=== PATIENT | male | born 1945 | race Caucasian/White ===

== ENCOUNTER 2017-04-25 07:58 | Day surgery (SDC) | payer MEDICARE, OTHER ==
[2017-04-25] MEDS ORDERED: METO50TA11 PO (08:39)
[2017-04-25] MEDS ORDERED: CHLO25TA2 PO (08:39)
[2017-04-25] MEDS ORDERED: MULTTAB67 PO (08:39)
[2017-04-25] MEDS ORDERED: IMUR50TA PO (08:39)
[2017-04-25] MEDS ORDERED: ATOR10TA15 PO (08:39)
[2017-04-25] MEDS ORDERED: ZETI10TA5 PO (08:39)
[2017-04-25] MEDS ORDERED: HYDR-3799 PO (08:39)
[2017-04-25] MEDS ORDERED: FERR325C PO (08:39)
[2017-04-25] MEDS ORDERED: ISOS20TA PO (08:39)
[2017-04-25] MEDS ORDERED: CLON0.3D T-DERMAL (08:39)
[2017-04-25] MEDS ORDERED: AMLO10TA2 PO (08:39)
[2017-04-25] MEDS ORDERED: SITA50 PO (08:39)
[2017-04-25] MEDS ORDERED: METOPROLOL TARTRATE 25 MG TAB PO PRN (09:00)
[2017-04-25] MEDS ORDERED: LACTATED RINGER'S 1000 ML IV PRN (09:00)
[2017-04-25] MEDS ORDERED: CHLORHEXIDINE GLUCONATE 2 % 1 PACK (2 CLOTHS) TOPICAL PRN (09:00)
[2017-04-25] MEDS ORDERED: SODIUM CHLORID 0.9% 500 ML IV PRN (09:00)
[2017-04-25] MEDS ORDERED: POVIDONE IODINE 5% (ANTISEPSIS KIT) 4 APPLICATIONS EACH NARE PRN (09:00)
[2017-04-25] MEDS ORDERED: INSULIN HUMAN REGULAR 1,000 UNITS/10 ML VIAL SQ PRN (09:00)
[2017-04-25] MEDS ORDERED: PROPOFOL 200 MG/20 ML AMP ONE ×2 (10:00→10:35)
[2017-04-25] MEDS ORDERED: ePHEDrine/NS 25 MG/5 ML SYR ONE (10:00)
[2017-04-25] MEDS ORDERED: SUCCINYLCHOLINE CHLORIDE 100 MG/5 ML SYRINGE ONE (10:00)
--- NOTE | 2017-04-25 13:17 | EKG ---
Date Performed: 04/25/2017 Time Performed: 08:41:12 PTAGE: 71 years EKG: Sinus bradycardia. Nonspecific intraventricular conduction delay Septal and high lateral ST -T changes may be due to myocardial ischemia Abnormal ECG NO PREVIOUS TRACING DOCTOR: Lucas Scott Interpretating Date/Time 04/25/2017 13:15:01
--- NOTE | 2017-04-29 15:02 | CF ---
cc: LIAM BOBO M.D. DATE OF PROCEDURE: 04/25/2017 PROCEDURE PERFORMED Transesophageal echocardiography with two-dimensional Echo, Doppler and color flow mapping. PREOPERATIVE DIAGNOSIS Aortic insufficiency and left ventricular dysfunction. POSTOPERATIVE DIAGNOSIS Aortic insufficiency and left ventricular dysfunction. ANESTHESIA Propofol sedation with anesthesiology assistance. BLOOD LOSS None. COMPLICATIONS None. PROCEDURE TECHNIQUE The patient was brought to the outpatient diagnostic unit and after informed consent was sedated with propofol. Transesophageal echocardiogram probe was passed without difficulty into the esophagus. Imaging was performed. Images including two-dimensional, Doppler and color flow mapping were performed of the heart and aorta. The probe was advanced and retroflexed in the stomach for additional imaging and following acquisition of all the imaging, the probe was removed without difficulty or complications and the patient was recovered. He will be discharged to home today when ambulatory and stable. FINDINGS 1. Left ventricular wall thickness is normal. The left ventricle is mildly dilated with mild global systolic dysfunction. The left ventricular ejection fraction is estimated at 40-45%. No regional wall motion abnormalities are identified. The right ventricle is mildly dilated with normal systolic function. There is mild biatrial enlargement. The intraatrial septum is intact without evidence of shunting. The left atrial appendage is free from any filling defects or thrombus. 2. The aortic valve is a sclerotic trileaflet valve. Adequate leaflet mobility is seen and there is no significant stenosis. There is aortic regurgitation detected. This jet is very eccentric and posteriorly directed traveling along the inferior wall distally to the inferior apex. Evaluating this regurgitant jet was somewhat difficult due to the eccentricity but findings of a pressure halftime of between 259 and 322 milliseconds. A vena contracta of approximately 1.2 cm. These findings as well as the color Doppler mapping indicate at least moderate to severe regurgitation. The aortic root and proximal portion of the ascending aorta are normal. 3. Mitral valve is structurally normal. There is trace mitral regurgitation detected by Doppler. 4. Tricuspid and pulmonic valves are structurally normal. There is trace tricuspid regurgitation detected by Doppler. Pulmonic flows are normal. 5. The pericardium is normal. There are no intracardiac masses or thrombi identified. 6. Descending thoracic aorta is normal. SUMMARY 1. Mildly dilated left and right ventricles. 2. Mild global left ventricular systolic dysfunction. 3. Aortic sclerosis with moderate to severe aortic regurgitation. COMMENTS/RECOMMENDATIONS The patient's aortic regurgitation appears to be significant at this point and his left ventricular function has begun to deteriorated over the last couple of years, and I think that replacement of his aortic valve should be done in the near future. I have discussed this with the patient and his and have scheduled him for a followup coronary angiogram to rule out any significant obstructive coronary disease, and then he will undergo cardiothoracic surgical evaluation for possible aortic valve replacement. MD EMRE Varma/AMIE /11:10 AM /2:39 PM
== END 2017-04-25 11:57 | disposition home or self-care (01) ==
LOC: HDIC 07:58 → HDOC 07:58
PROVIDERS: ATTEND Internal Medicine Interventional Cardiology
DX: I35.0 Nonrheumatic aortic (valve) stenosis (principal); I34.0 Nonrheumatic mitral (valve) insufficiency; I50.1 Left ventricular failure, unspecified
CPT/HCPCS: 93005; 93312; 93320; 93325; J0330

== ENCOUNTER 2017-05-09 05:56 | Day surgery (SDC) | payer MEDICARE, OTHER ==
[~2017-05-09] VITALS: Ht 177.8 cm; Wt 78.4 kg
[~2017-05-09 05:56] MED LIST: AMLO10TA2 PO; ATOR10TA15 PO; CHLO25TA2 PO; CLON0.3D T-DERMAL; FERR325C PO; HYDR-3799 PO; IMUR50TA PO; ISOS20TA PO; METO50TA11 PO; MULTTAB67 PO; SITA50 PO; ZETI10TA5 PO
[2017-05-09] MEDS ORDERED: IOHEXOL 350 MG/ML 100 ML BTL (for Cath Lab) OTHER ONE (05:57)
[2017-05-09] MEDS ORDERED: SODIUM CHLOR 0.9% 1000 ML INJ 1,000 ML IV SCH ×2 (06:43→11:00)
[2017-05-09] MEDS ORDERED: diphenhydrAMINE HCL 50 MG CAP PO PRN (06:45)
[2017-05-09] MEDS ORDERED: MIDAZOLAM HCL 2 MG/2 ML VIAL IV PUSH SCH (06:45)
[2017-05-09] MEDS ORDERED: NS 1000P @30 MLS/HR (KVO) IV SCH (07:30)
[2017-05-09 08:04] VITALS: BP 153/71; RESP 18; TEMP 98.2
[2017-05-09] MEDS ORDERED: HEPARIN-NS/PF INJ 1,000 ML ONE (08:46)
[2017-05-09] MEDS ORDERED: SODIUM CHLORID 0.9% 500 ML INJ 500 ML ONE (08:47)
[2017-05-09] MEDS ORDERED: MIDAZOLAM HCL 2 MG/2 ML VIAL ONE (08:49)
[2017-05-09] MEDS ORDERED: VERAPAMIL HCL 5 MG/2 ML VIAL ONE (08:54)
[2017-05-09] MEDS ORDERED: HEPARIN SODIUM - IV 10,000 UNITS/10 ML VIAL ONE (08:54)
[2017-05-09] MEDS ORDERED: NITROGLYCERIN INJ 5 ML ONE (08:54)
[2017-05-09] MEDS ORDERED: RESP: ACETYLCYSTEINE 10% 30 ML NEB OTHER SCH (09:00)
--- NOTE | 2017-05-09 09:20 | CATHPROC ---
[employer] HIS Report Study Information Study Number Admission Scheduled Start Study Start [id number] May 09 2017 5:56AM 05/09/2017 May 09 2017 8:32AM [facility]thel Service Cardiac Catheterization Admit Source Facility Department Other [facility] - Biometrics Consultant Physician and Clinical Staff Initial MD Marr, Aaron General Practice Errol Haq,JULIA Recorder Millie Granados,FISHER EEL TECH2 Scrub Blas, Justine,RT(R) Procedures Performed Procedure Location (Site) Vessel Name Coronary Angiograms LCA Left Coronary Coronary Angiograms RCA Right Coronary Wire insertion Radial (right) Radial Art. Equipment Time Indirect Sales Representative Description Size Mfg Part Number Used/Scraped TRANSDUCER, TRUWAVE [id number] 08:49 PRYOR JACKMAN * Used W/STOCKCOCK *[id number] 08:49 MALLINCKRODT SYRINGE, ANGIOMAT 150ML 150ML *[id number] Used 2SUB [id number] 08:49 [employer] INDUSTRIES PACK, CCL CUSTOM * Used *[id number] 08:49 [place] SUPPORT, ARTERIAL ADULT 75589 *[id number] Used [id number] 08:49 [employer] PACER PEN, SKIN DUAL W/ RULER * Used *[id number] BAND, RADIAL COMPRESSION TR [id number] 09:09 [employer] MEDICAL 29CM Used LARGE 29 *[id number] 08:49 [employer] MEDICAL WIRE, EXCHANGE 260CM 3MMJ 260CM Used *[id number] 08:49 NAMIC MANIFOLD, 4 PORT * Used *[id number] 08:49 NYCOMED OMNIPAQUE, 350 MG, 150ML 150ML [id number] Used [id number] 08:49 [employer] MEDICAL BLANKET,WARM AIR CCL * Used *[id number] CATHETER, FR5 OPTITORQUE [id number] 08:50 [employer] MEDICAL FR 5 Used RADIAL TIG 4.0 *[id number] SHEATH, FR6 TRANSRADIAL RM*[id number] 08:49 [employer] MEDICAL FR 6 Used SLENDER 10CM *[id number] History: Allergies Allergy Reaction No Known Allergies CHYNA Inhibitors ARB-Angiotensin Receptor Antagonist History: Risk Factors Family History of Hypertension Dyslipidemia Previous [place] Previous Heart Failure Premature CAD Yes Yes Yes No No Prior Valve Prior PCI Prior CABG Surgery No No No Cerebrovascular Peripheral Artery Chronic Lung On Dialysis Diabetes Diabetes Therapy Disease Disease Disease No No No Yes Yes Oral Labs Hgb (g/dl) Hct (%) RBC (MIL/MM3) WBC (l/cumm) Platelets (thousands) 11.60-17.00 35.00-51.00 4.00-5.90 4.00-11.00 150.00-450.00 10.4 30.4 3 3.8 198 Creatinine (mg/dl) 0.50-1.30 1.9 Na (meq/l) K (meq/l) Cl (meq/l) CO2 (mmol/L) Ca (mg/dl) 136.00-145.00 3.50-5.10 98.00-107.00 21.00-32.00 8.50-10.10 139 4.9 106 25 8.9 Medication Medication Total Dose (Bolus/Oral) Medication Total Dosage/Unit 1% XYLOCAINE 10 mL FENTANYL 25 mcg RADIAL COCKTAIL 5 mL (Bolus) VERSED 2 mg Medications (Bolus/Oral) Medication Time Given Dosage/Unit Administered By Reason VERSED 05/09/2017 8:56:34 AM 2 mg Errol Haq 2 mg VERSED given in lab by Errol Haq RN in Left Antecubital via Peripheral IV. Ordered by Aaron Romero. FENTANYL 05/09/2017 8:56:50 AM 25 mcg Errol Haq 25 mcg FENTANYL given in lab by Errol Haq RN in Left Antecubital via Peripheral IV. Ordered by Aaron Marr. 1% XYLOCAINE 05/09/2017 8:57:13 AM 10 mL Aaron Marr 10 mL 1% XYLOCAINE given in lab by Aaron Marr in Right Radial via Subcutaneous. Ordered by Aaron Romero. Ntg 200mcg Verapamil 2.5mg Heparin RADIAL COCKTAIL 05/09/2017 9:00:35 AM 5 mL (Bolus) Aaron Marr 3000U 5 mL (Bolus) RADIAL COCKTAIL given in lab by Aaron Marr via Radial. Using [Solution Name]. Orde red by Aaron Marr. Reason: Ntg 200mcg Verapamil 2.5mg Heparin 3000U. Medication (Drip) Medication Time Given Dosage/Unit Concentration/Unit Diluent (ml) Solutio n IV Solutions 05/09/2017 8:41:08 AM 0 mL (IV) 500 NaCl .9 IV Solutions given in lab by Aaron Marr in Left Antecubital via Peripheral IV. Pump/Drip Flow = 150 ml/hr using NaCl .9. Ordered by Aaron Marr. IV Solutions 05/09/2017 8:41:43 AM 0 mL (IV) 500 NaCl .9 IV Solutions given in lab by Errol Haq RN in Left Antecubital via Peripheral IV. Pump/Drip Flow = 20 ml/hr using NaCl .9. Ordered by Aaron Marr. Initial Case Assessment Cardiovascular HR NIBP 65 185/85 Edema Present Skin color Skin None Normal Warm Dry Circulatory - Right Pulses Dorsalis Pedis Femoral Radial 2 2 2 Scale (0,1,2,3,4,d) Circulatory - Left Pulses Dorsalis Pedis Femoral Radial 2 2 Scale (0,1,2,3,4,d) Neurological State Oriented to time-place- Alert person Respiration - General Respiration Rate SpO2 (%) (B/min) 17 94 Final Case Assessment Cardiovascular HR NIBP 53 148/61 Edema Present Skin color Skin None Normal Warm Dry Circulatory - Right Pulses Dorsalis Pedis Femoral Radial 2 2 2 Scale (0,1,2,3,4,d) Circulatory - Left Pulses Dorsalis Pedis Femoral Radial 2 2 Scale (0,1,2,3,4,d) Neurological State Oriented to time-place- Alert person Respiration - General Respiration Rate SpO2 (%) (B/min) 16 95 Chronological Log Time Study Chronological Log 8:28:57 Patient arrived via Bed. 8:32:05 Patient Name, D.O.B, / Armband Verified By R.N. 8:32:06 Consent signed by the physician and the patient and verified by the Biometrics Consultant staff. 8:32:07 Pre-op and post- op instructions given; patient acknowledges understanding of instructions. Vitals capture started with the following parameters, Patient=Adult, Interval=5 min, Initial Pr xvmylj=476 mmHg, 8:35:56 Deflation Rate=5 mmHg, Cuff placed on Left Arm 8:37:04 HR=66 bpm, DBTJ=275/72 mmhg, SpO2=95 %, Resp=10 B/min, Pain=0, [place]=10, Davis=2 8:39:46 Verbal Stimulation=2 Physical Stimulation=2 Airway=2 Respiration=2 TOTAL=8. (0=absent, 1=li mited, 2=present) 8:40:56 Patient has been NPO for More than 6Hrs. 8:41:02 Skin Breakdown- 8:41:04 Finesse Prominences Protected 8:41:07 A # 20 IV was noted in the Antecubital (left). Grade = 0 IV Solutions given in lab by Aaron Marr in Left Antecubital via Peripheral IV. Pump/Drip Flow = 150 ml/hr using 8:41:08 NaCl .9. Ordered by Aaron Marr. 8:41:10 History and physical on the chart or being dictated. IV Solutions given in lab by Errol Haq, RN in Left Antecubital via Peripheral IV. Pump/Dri p Flow = 20 ml/hr using 8:41:43 NaCl .9. Ordered by Aaron Marr. 8:42:13 HR=65 bpm, XEXP=216/85 mmhg, SpO2=94 %, Resp=17 B/min, Pain=0, Mal[place]=10, Davis=2 Assessment: Initial Case, HR=65 BPM, STPG=303/85 mmhg, Edema=None, Color=Normal, Skin = Warm, Dr y Right Pulses: Kiran Ped=2, Femoral=2, Radial=2 8:42:31 Left Pulses: Kiran Ped=2, Femoral=2 Neurological: State=Alert, Ox3 Respiration: Resp=17 B/min, SpO2=94 % 8:46:42 HR=72 bpm, UGVN=147/75 mmhg, SpO2=95.0 %, Resp=17 B/min, Pain=0, [place]=10, Davis=2 8:51:39 HR=60 bpm, BFQR=995/82 mmhg, SpO2=94.0 %, Resp=12 B/min, Pain=0, Mal[place]=10, Davis=2 8:53:05 Right Radial and groin(s) prepped with 2% chlorhexidine, and draped after a 3 min. waiting t alfa. 8:56:13 Pressure channel 1 zeroed. Time Out. Correct patient, correct procedure, correct physician, power injector not loaded with contrast with surgical 8:56:21 team present. Time Out Concurred by MD and individual staff in procedure. 8:56:34 2 mg VERSED given in lab by Errol Haq RN in Left Antecubital via Peripheral IV. Ordere d by Aaron Marr. 8:56:40 HR=65 bpm, HXOU=666/79 mmhg, SpO2=92 %, Resp=17 B/min, Pain=0, Mal[place]=10, Davis=2 8:56:50 25 mcg FENTANYL given in lab by Errol Haq RN in Left Antecubital via Peripheral IV. Or dered by Aaron Marr. 8:57:08 Reference ECG taken 8:57:12 Case Start 8:57:13 10 mL 1% XYLOCAINE given in lab by Aaron Marr in Right Radial via Subcutaneous. Ordere d by Aaron Marr. 8:59:49 Access site was Radial Artery. A SHEATH, FR6 TRANSRADIAL SLENDER 10CM FR 6 was advanced into the Radial (right) using the Modif ied Seldinger 9:00:02 technique. 5 mL (Bolus) RADIAL COCKTAIL given in lab by Aaron Marr via Radial. Using [Solution Name]. Ordered by 9:00:35 Aaron Marr. Reason: Ntg 200mcg Verapamil 2.5mg Heparin 3000U. 9:01:41 HR=58 bpm, CHTB=262/66 mmhg, SpO2=93.0 %, Resp=18 B/min, Pain=0, Mal[place]=10, Davis=2 A CATHETER, FR5 OPTITORQUE RADIAL TIG 4.0 FR 5 was advanced over a wire. OMNIPAQUE, 350 MG, 150M L 150ML 9:02:01 was used for injections. Recorded Pressure: Ao, HR=62, Condition=Condition 1 9:02:41 (Aorta) Ao 139/59/91 9:03:30 The LCA was injected and visualized at various angles. OMNIPAQUE, 350 MG, 150ML 150ML used. 9:06:24 The RCA was injected and visualized at various angles. OMNIPAQUE, 350 MG, 150ML 150ML used. 9:06:36 HR=59 bpm, BXXF=378/71 mmhg, SpO2=93.0 %, Resp=16 B/min, Pain=0, Mal[place]=10, Davis=2 9:08:04 A WIRE, EXCHANGE 260CM 3MMJ 260CM was inserted via Radial (right). 9:08:15 Catheter was removed 9:09:20 Case End 9:09:51 Catheter(s) removed without difficulty Radial Compression Device Used. 14 mLs of air placed in BAND, RADIAL COMPRESSION TR LARGE 29 29C M. Affected 9:09:55 hand 94 % O2 saturation. 9:10:01 No case complications noted. 9:10:03 Cine recording checked. 9:10:08 Bedside Report will be given. 9:11:37 HR=53 bpm, VCPH=465/61 mmhg, SpO2=95.0 %, Resp=16 B/min, Pain=0, Mal[place]=10, Davis=2 Assessment: Final Case, HR=53 BPM, KDVD=047/61 mmhg, Edema=None, Color=Normal, Skin = Warm, Dry Right Pulses: Kiran Ped=2, Femoral=2, Radial=2 9:14:40 Left Pulses: Kiran Ped=2, Femoral=2 Neurological: State=Alert, Ox3 Respiration: Resp=16 B/min, SpO2=95 % 9:15:15 Vitals capture stopped. 9:15:18 Patient moved to [facility] End Study - Contrast Media Used In Study Contrast Total Opened (mL) Total Used (mL) Total Wasted (mL) Omnipaque 60 60 0 End Study - Maximum Contrast Load Max Contrast Load (mL) 206.3 End Study - Radiation Exposure Fluoro Time (minutes) 2.2 End Study - Patient Disposition Complications Transferred To Telemetry Bed
--- NOTE | 2017-05-09 09:20 | CATHPROC ---
[employer] HIS Report Study Information Study Number Admission Scheduled Start Study Start [id number] May 09 2017 5:56AM 05/09/2017 May 09 2017 8:32AM [facility]odell Service Cardiac Catheterization Admit Source Facility Department Other [facility] - Proteomics Scientist Physician and Clinical Staff Initial MD Marr, Aaron Water Filter Cleaner Errol Haq,JULIA Recorder Millie Granados,EQUIPMENT OPERATOR/LABORER TECH2 Scrub Blas, Justine,RT(R) Procedures Performed Procedure Location (Site) Vessel Name Coronary Angiograms LCA Left Coronary Coronary Angiograms RCA Right Coronary Wire insertion Radial (right) Radial Art. Equipment Time Scrap Breaker Description Size Mfg Part Number Used/Scraped TRANSDUCER, TRUWAVE [id number] 08:49 PRYOR JACKMAN * Used W/STOCKCOCK *[id number] 08:49 MALLINCKRODT SYRINGE, ANGIOMAT 150ML 150ML *[id number] Used 2SUB [id number] 08:49 [employer] INDUSTRIES PACK, CCL CUSTOM * Used *[id number] 08:49 [employer] SUPPORT, ARTERIAL ADULT 96042 *[id number] Used [id number] 08:49 [employer] PACER PEN, SKIN DUAL W/ RULER * Used *[id number] BAND, RADIAL COMPRESSION TR [id number] 09:09 [employer] MEDICAL 29CM Used LARGE 29 *[id number] 08:49 [employer] MEDICAL WIRE, EXCHANGE 260CM 3MMJ 260CM Used *[id number] 08:49 NAMIC MANIFOLD, 4 PORT * Used *[id number] 08:49 NYCOMED OMNIPAQUE, 350 MG, 150ML 150ML [id number] Used [id number] 08:49 [place] MEDICAL BLANKET,WARM AIR CCL * Used *[id number] CATHETER, FR5 OPTITORQUE [id number] 08:50 [employer] MEDICAL FR 5 Used RADIAL TIG 4.0 *[id number] SHEATH, FR6 TRANSRADIAL RM*[id number] 08:49 [employer] MEDICAL FR 6 Used SLENDER 10CM *[id number] History: Allergies Allergy Reaction No Known Allergies CHYNA Inhibitors ARB-Angiotensin Receptor Antagonist History: Risk Factors Family History of Hypertension Dyslipidemia Previous [place] Previous Heart Failure Premature CAD Yes Yes Yes No No Prior Valve Prior PCI Prior CABG Surgery No No No Cerebrovascular Peripheral Artery Chronic Lung On Dialysis Diabetes Diabetes Therapy Disease Disease Disease No No No Yes Yes Oral Labs Hgb (g/dl) Hct (%) RBC (MIL/MM3) WBC (l/cumm) Platelets (thousands) 11.60-17.00 35.00-51.00 4.00-5.90 4.00-11.00 150.00-450.00 10.4 30.4 3 3.8 198 Creatinine (mg/dl) 0.50-1.30 1.9 Na (meq/l) K (meq/l) Cl (meq/l) CO2 (mmol/L) Ca (mg/dl) 136.00-145.00 3.50-5.10 98.00-107.00 21.00-32.00 8.50-10.10 139 4.9 106 25 8.9 Medication Medication Total Dose (Bolus/Oral) Medication Total Dosage/Unit 1% XYLOCAINE 10 mL FENTANYL 25 mcg RADIAL COCKTAIL 5 mL (Bolus) VERSED 2 mg Medications (Bolus/Oral) Medication Time Given Dosage/Unit Administered By Reason VERSED 05/09/2017 8:56:34 AM 2 mg Errol Haq 2 mg VERSED given in lab by Errol Haq RN in Left Antecubital via Peripheral IV. Ordered by Aaron Romero. FENTANYL 05/09/2017 8:56:50 AM 25 mcg Errol Haq 25 mcg FENTANYL given in lab by Errol Haq RN in Left Antecubital via Peripheral IV. Ordered by Aaron Marr. 1% XYLOCAINE 05/09/2017 8:57:13 AM 10 mL Aaron Marr 10 mL 1% XYLOCAINE given in lab by Aaron Marr in Right Radial via Subcutaneous. Ordered by Aaron Romero. Ntg 200mcg Verapamil 2.5mg Heparin RADIAL COCKTAIL 05/09/2017 9:00:35 AM 5 mL (Bolus) Aaron Marr 3000U 5 mL (Bolus) RADIAL COCKTAIL given in lab by Aaron Marr via Radial. Using [Solution Name]. Orde red by Aaron Marr. Reason: Ntg 200mcg Verapamil 2.5mg Heparin 3000U. Medication (Drip) Medication Time Given Dosage/Unit Concentration/Unit Diluent (ml) Solutio n IV Solutions 05/09/2017 8:41:08 AM 0 mL (IV) 500 NaCl .9 IV Solutions given in lab by Aaron Marr in Left Antecubital via Peripheral IV. Pump/Drip Flow = 150 ml/hr using NaCl .9. Ordered by Aaron Marr. IV Solutions 05/09/2017 8:41:43 AM 0 mL (IV) 500 NaCl .9 IV Solutions given in lab by Errol Haq RN in Left Antecubital via Peripheral IV. Pump/Drip Flow = 20 ml/hr using NaCl .9. Ordered by Aaron Marr. Initial Case Assessment Cardiovascular HR NIBP 65 185/85 Edema Present Skin color Skin None Normal Warm Dry Circulatory - Right Pulses Dorsalis Pedis Femoral Radial 2 2 2 Scale (0,1,2,3,4,d) Circulatory - Left Pulses Dorsalis Pedis Femoral Radial 2 2 Scale (0,1,2,3,4,d) Neurological State Oriented to time-place- Alert person Respiration - General Respiration Rate SpO2 (%) (B/min) 17 94 Final Case Assessment Cardiovascular HR NIBP 53 148/61 Edema Present Skin color Skin None Normal Warm Dry Circulatory - Right Pulses Dorsalis Pedis Femoral Radial 2 2 2 Scale (0,1,2,3,4,d) Circulatory - Left Pulses Dorsalis Pedis Femoral Radial 2 2 Scale (0,1,2,3,4,d) Neurological State Oriented to time-place- Alert person Respiration - General Respiration Rate SpO2 (%) (B/min) 16 95 Chronological Log Time Study Chronological Log 8:28:57 Patient arrived via Bed. 8:32:05 Patient Name, D.O.B, / Armband Verified By R.N. 8:32:06 Consent signed by the physician and the patient and verified by the Proteomics Scientist staff. 8:32:07 Pre-op and post- op instructions given; patient acknowledges understanding of instructions. Vitals capture started with the following parameters, Patient=Adult, Interval=5 min, Initial Pr fnokci=520 mmHg, 8:35:56 Deflation Rate=5 mmHg, Cuff placed on Left Arm 8:37:04 HR=66 bpm, FQUR=536/72 mmhg, SpO2=95 %, Resp=10 B/min, Pain=0, Mal[place]=10, Davis=2 8:39:46 Verbal Stimulation=2 Physical Stimulation=2 Airway=2 Respiration=2 TOTAL=8. (0=absent, 1=li mited, 2=present) 8:40:56 Patient has been NPO for More than 6Hrs. 8:41:02 Skin Breakdown- 8:41:04 Finesse Prominences Protected 8:41:07 A # 20 IV was noted in the Antecubital (left). Grade = 0 IV Solutions given in lab by Aaron Marr in Left Antecubital via Peripheral IV. Pump/Drip Flow = 150 ml/hr using 8:41:08 NaCl .9. Ordered by Aaron Marr. 8:41:10 History and physical on the chart or being dictated. IV Solutions given in lab by Errol Haq, RN in Left Antecubital via Peripheral IV. Pump/Dri p Flow = 20 ml/hr using 8:41:43 NaCl .9. Ordered by Aaron Marr. 8:42:13 HR=65 bpm, DGSE=453/85 mmhg, SpO2=94 %, Resp=17 B/min, Pain=0, Mal[place]=10, Davis=2 Assessment: Initial Case, HR=65 BPM, RDDI=413/85 mmhg, Edema=None, Color=Normal, Skin = Warm, Dr y Right Pulses: Kiran Ped=2, Femoral=2, Radial=2 8:42:31 Left Pulses: Kiran Ped=2, Femoral=2 Neurological: State=Alert, Ox3 Respiration: Resp=17 B/min, SpO2=94 % 8:46:42 HR=72 bpm, ONNB=395/75 mmhg, SpO2=95.0 %, Resp=17 B/min, Pain=0, [place]=10, Davis=2 8:51:39 HR=60 bpm, UROT=761/82 mmhg, SpO2=94.0 %, Resp=12 B/min, Pain=0, [place]=10, Davis=2 8:53:05 Right Radial and groin(s) prepped with 2% chlorhexidine, and draped after a 3 min. waiting t alfa. 8:56:13 Pressure channel 1 zeroed. Time Out. Correct patient, correct procedure, correct physician, power injector not loaded with contrast with surgical 8:56:21 team present. Time Out Concurred by MD and individual staff in procedure. 8:56:34 2 mg VERSED given in lab by Errol Haq RN in Left Antecubital via Peripheral IV. Ordere d by Aaron Marr. 8:56:40 HR=65 bpm, GLRX=187/79 mmhg, SpO2=92 %, Resp=17 B/min, Pain=0, Mal[place]=10, Davis=2 8:56:50 25 mcg FENTANYL given in lab by Errol Haq RN in Left Antecubital via Peripheral IV. Or dered by Aaron Marr. 8:57:08 Reference ECG taken 8:57:12 Case Start 8:57:13 10 mL 1% XYLOCAINE given in lab by Aaron Marr in Right Radial via Subcutaneous. Ordere d by Aaron Marr. 8:59:49 Access site was Radial Artery. A SHEATH, FR6 TRANSRADIAL SLENDER 10CM FR 6 was advanced into the Radial (right) using the Modif ied Seldinger 9:00:02 technique. 5 mL (Bolus) RADIAL COCKTAIL given in lab by Aaron Marr via Radial. Using [Solution Name]. Ordered by 9:00:35 Aaron Marr. Reason: Ntg 200mcg Verapamil 2.5mg Heparin 3000U. 9:01:41 HR=58 bpm, ENEA=355/66 mmhg, SpO2=93.0 %, Resp=18 B/min, Pain=0, Mal[place]=10, Davis=2 A CATHETER, FR5 OPTITORQUE RADIAL TIG 4.0 FR 5 was advanced over a wire. OMNIPAQUE, 350 MG, 150M L 150ML 9:02:01 was used for injections. Recorded Pressure: Ao, HR=62, Condition=Condition 1 9:02:41 (Aorta) Ao 139/59/91 9:03:30 The LCA was injected and visualized at various angles. OMNIPAQUE, 350 MG, 150ML 150ML used. 9:06:24 The RCA was injected and visualized at various angles. OMNIPAQUE, 350 MG, 150ML 150ML used. 9:06:36 HR=59 bpm, DOYL=908/71 mmhg, SpO2=93.0 %, Resp=16 B/min, Pain=0, Mal[place]=10, Davis=2 9:08:04 A WIRE, EXCHANGE 260CM 3MMJ 260CM was inserted via Radial (right). 9:08:15 Catheter was removed 9:09:20 Case End 9:09:51 Catheter(s) removed without difficulty Radial Compression Device Used. 14 mLs of air placed in BAND, RADIAL COMPRESSION TR LARGE 29 29C M. Affected 9:09:55 hand 94 % O2 saturation. 9:10:01 No case complications noted. 9:10:03 Cine recording checked. 9:10:08 Bedside Report will be given. 9:11:37 HR=53 bpm, FBSV=304/61 mmhg, SpO2=95.0 %, Resp=16 B/min, Pain=0, Mal[place]=10, Davis=2 Assessment: Final Case, HR=53 BPM, CZKC=133/61 mmhg, Edema=None, Color=Normal, Skin = Warm, Dry Right Pulses: Kiran Ped=2, Femoral=2, Radial=2 9:14:40 Left Pulses: Kiran Ped=2, Femoral=2 Neurological: State=Alert, Ox3 Respiration: Resp=16 B/min, SpO2=95 % 9:15:15 Vitals capture stopped. 9:15:18 Patient moved to [facility] End Study - Contrast Media Used In Study Contrast Total Opened (mL) Total Used (mL) Total Wasted (mL) Omnipaque 60 60 0 End Study - Maximum Contrast Load Max Contrast Load (mL) 206.3 End Study - Radiation Exposure Fluoro Time (minutes) 2.2 End Study - Patient Disposition Complications Transferred To Telemetry Bed
--- NOTE | 2017-05-09 09:20 | CATHPROC ---
[facility] HIS Report Study Information Study Number Admission Scheduled Start Study Start [id number] May 09 2017 5:56AM 05/09/2017 May 09 2017 8:32AM [place] Service Cardiac Catheterization Admit Source Facility Department Other [facility] Nurse Physician and Clinical Staff Initial MD Marr, Aaron Office Administration Errol Haq,JULIA Recorder Millie Granados,PEN OR PENCIL ASSEMBLY MACHINE OPERATOR TECH2 Scrub Blas, Justine,RT(R) Procedures Performed Procedure Location (Site) Vessel Name Coronary Angiograms LCA Left Coronary Coronary Angiograms RCA Right Coronary Wire insertion Radial (right) Radial Art. Equipment Time Deliverer Food Description Size Mfg Part Number Used/Scraped TRANSDUCER, TRUWAVE [id number] 08:49 PRYOR JACKMAN * Used W/STOCKCOCK *[id number] 08:49 MALLINCKRODT SYRINGE, ANGIOMAT 150ML 150ML *[id number] Used 2SUB [id number] 08:49 [employer] INDUSTRIES PACK, CCL CUSTOM * Used *[id number] 08:49 Edictive SUPPORT, ARTERIAL ADULT 95630 *[id number] Used [id number] 08:49 [employer] PACER PEN, SKIN DUAL W/ RULER * Used *[id number] BAND, RADIAL COMPRESSION TR [id number] 09:09 [employer] MEDICAL 29CM Used LARGE 29 *[id number] 08:49 [employer] MEDICAL WIRE, EXCHANGE 260CM 3MMJ 260CM Used *[id number] 08:49 NAMIC MANIFOLD, 4 PORT * Used *[id number] 08:49 [employer] OMNIPAQUE, 350 MG, 150ML 150ML [id number] Used [id number] 08:49 [employer] BLANKET,WARM AIR CCL * Used *[id number] CATHETER, FR5 OPTITORQUE [id number] 08:50 [employer] FR 5 Used RADIAL TIG 4.0 *[id number] SHEATH, FR6 TRANSRADIAL [id number] 08:49 [employer] FR 6 Used SLENDER 10CM *[id number] History: Allergies Allergy Reaction No Known Allergies CHYNA Inhibitors ARB-Angiotensin Receptor Antagonist History: Risk Factors Family History of Hypertension Dyslipidemia Previous IN Previous Heart Failure Premature CAD Yes Yes Yes No No Prior Valve Prior PCI Prior CABG Surgery No No No Cerebrovascular Peripheral Artery Chronic Lung On Dialysis Diabetes Diabetes Therapy Disease Disease Disease No No No Yes Yes Oral Labs Hgb (g/dl) Hct (%) RBC (MIL/MM3) WBC (l/cumm) Platelets (thousands) 11.60-17.00 35.00-51.00 4.00-5.90 4.00-11.00 150.00-450.00 10.4 30.4 3 3.8 198 Creatinine (mg/dl) 0.50-1.30 1.9 Na (meq/l) K (meq/l) Cl (meq/l) CO2 (mmol/L) Ca (mg/dl) 136.00-145.00 3.50-5.10 98.00-107.00 21.00-32.00 8.50-10.10 139 4.9 106 25 8.9 Medication Medication Total Dose (Bolus/Oral) Medication Total Dosage/Unit 1% XYLOCAINE 10 mL FENTANYL 25 mcg RADIAL COCKTAIL 5 mL (Bolus) VERSED 2 mg Medications (Bolus/Oral) Medication Time Given Dosage/Unit Administered By Reason VERSED 05/09/2017 8:56:34 AM 2 mg Errol Haq 2 mg VERSED given in lab by Errol Haq RN in Left Antecubital via Peripheral IV. Ordered by Aaron Romero. FENTANYL 05/09/2017 8:56:50 AM 25 mcg Errol Haq 25 mcg FENTANYL given in lab by Errol Haq RN in Left Antecubital via Peripheral IV. Ordered by Aaron Marr. 1% XYLOCAINE 05/09/2017 8:57:13 AM 10 mL Aaron Marr 10 mL 1% XYLOCAINE given in lab by Aaron Marr in Right Radial via Subcutaneous. Ordered by Aaron Romero. Ntg 200mcg Verapamil 2.5mg Heparin RADIAL COCKTAIL 05/09/2017 9:00:35 AM 5 mL (Bolus) Aaron Marr 3000U 5 mL (Bolus) RADIAL COCKTAIL given in lab by Aaron Marr via Radial. Using [Solution Name]. Orde red by Aaron Marr. Reason: Ntg 200mcg Verapamil 2.5mg Heparin 3000U. Medication (Drip) Medication Time Given Dosage/Unit Concentration/Unit Diluent (ml) Solutio n IV Solutions 05/09/2017 8:41:08 AM 0 mL (IV) 500 NaCl .9 IV Solutions given in lab by Aaron Marr in Left Antecubital via Peripheral IV. Pump/Drip Flow = 150 ml/hr using NaCl .9. Ordered by Aaron Marr. IV Solutions 05/09/2017 8:41:43 AM 0 mL (IV) 500 NaCl .9 IV Solutions given in lab by Errol Haq RN in Left Antecubital via Peripheral IV. Pump/Drip Flow = 20 ml/hr using NaCl .9. Ordered by Aaron Marr. Initial Case Assessment Cardiovascular HR NIBP 65 185/85 Edema Present Skin color Skin None Normal Warm Dry Circulatory - Right Pulses Dorsalis Pedis Femoral Radial 2 2 2 Scale (0,1,2,3,4,d) Circulatory - Left Pulses Dorsalis Pedis Femoral Radial 2 2 Scale (0,1,2,3,4,d) Neurological State Oriented to time-place- Alert person Respiration - General Respiration Rate SpO2 (%) (B/min) 17 94 Final Case Assessment Cardiovascular HR NIBP 53 148/61 Edema Present Skin color Skin None Normal Warm Dry Circulatory - Right Pulses Dorsalis Pedis Femoral Radial 2 2 2 Scale (0,1,2,3,4,d) Circulatory - Left Pulses Dorsalis Pedis Femoral Radial 2 2 Scale (0,1,2,3,4,d) Neurological State Oriented to time-place- Alert person Respiration - General Respiration Rate SpO2 (%) (B/min) 16 95 Chronological Log Time Study Chronological Log 8:28:57 Patient arrived via Bed. 8:32:05 Patient Name, D.O.B, / Armband Verified By R.N. 8:32:06 Consent signed by the physician and the patient and verified by the [facility] Nurse staff. 8:32:07 Pre-op and post- op instructions given; patient acknowledges understanding of instructions. Vitals capture started with the following parameters, Patient=Adult, Interval=5 min, Initial Pr vwadhg=904 mmHg, 8:35:56 Deflation Rate=5 mmHg, Cuff placed on Left Arm 8:37:04 HR=66 bpm, CWTL=189/72 mmhg, SpO2=95 %, Resp=10 B/min, Pain=0, Mali=10, Davis=2 8:39:46 Verbal Stimulation=2 Physical Stimulation=2 Airway=2 Respiration=2 TOTAL=8. (0=absent, 1=li mited, 2=present) 8:40:56 Patient has been NPO for More than 6Hrs. 8:41:02 Skin Breakdown- 8:41:04 Finesse Prominences Protected 8:41:07 A # 20 IV was noted in the Antecubital (left). Grade = 0 IV Solutions given in lab by Aaron Marr in Left Antecubital via Peripheral IV. Pump/Drip Flow = 150 ml/hr using 8:41:08 NaCl .9. Ordered by Aaron Marr. 8:41:10 History and physical on the chart or being dictated. IV Solutions given in lab by Errol Haq, RN in Left Antecubital via Peripheral IV. Pump/Dri p Flow = 20 ml/hr using 8:41:43 NaCl .9. Ordered by Aaron Marr. 8:42:13 HR=65 bpm, QRXD=046/85 mmhg, SpO2=94 %, Resp=17 B/min, Pain=0, Mali=10, Davis=2 Assessment: Initial Case, HR=65 BPM, TZIP=645/85 mmhg, Edema=None, Color=Normal, Skin = Warm, Dr y Right Pulses: Kiran Ped=2, Femoral=2, Radial=2 8:42:31 Left Pulses: Kiran Ped=2, Femoral=2 Neurological: State=Alert, Ox3 Respiration: Resp=17 B/min, SpO2=94 % 8:46:42 HR=72 bpm, CCOE=009/75 mmhg, SpO2=95.0 %, Resp=17 B/min, Pain=0, Mali=10, Davis=2 8:51:39 HR=60 bpm, FJOB=733/82 mmhg, SpO2=94.0 %, Resp=12 B/min, Pain=0, Mali=10, Davis=2 8:53:05 Right Radial and groin(s) prepped with 2% chlorhexidine, and draped after a 3 min. waiting t alfa. 8:56:13 Pressure channel 1 zeroed. Time Out. Correct patient, correct procedure, correct physician, power injector not loaded with contrast with surgical 8:56:21 team present. Time Out Concurred by MD and individual staff in procedure. 8:56:34 2 mg VERSED given in lab by Errol Haq RN in Left Antecubital via Peripheral IV. Ordere d by Aaron Marr. 8:56:40 HR=65 bpm, NJFS=189/79 mmhg, SpO2=92 %, Resp=17 B/min, Pain=0, Mali=10, Davis=2 8:56:50 25 mcg FENTANYL given in lab by Errol Haq RN in Left Antecubital via Peripheral IV. Or dered by Aaron Marr. 8:57:08 Reference ECG taken 8:57:12 Case Start 8:57:13 10 mL 1% XYLOCAINE given in lab by Aaron Marr in Right Radial via Subcutaneous. Ordere d by Aaron Marr. 8:59:49 Access site was Radial Artery. A SHEATH, FR6 TRANSRADIAL SLENDER 10CM FR 6 was advanced into the Radial (right) using the Modif ied Seldinger 9:00:02 technique. 5 mL (Bolus) RADIAL COCKTAIL given in lab by Aaron Marr via Radial. Using [Solution Name]. Ordered by 9:00:35 Aaron Marr. Reason: Ntg 200mcg Verapamil 2.5mg Heparin 3000U. 9:01:41 HR=58 bpm, LIDU=370/66 mmhg, SpO2=93.0 %, Resp=18 B/min, Pain=0, Mali=10, Davis=2 A CATHETER, FR5 OPTITORQUE RADIAL TIG 4.0 FR 5 was advanced over a wire. OMNIPAQUE, 350 MG, 150M L 150ML 9:02:01 was used for injections. Recorded Pressure: Ao, HR=62, Condition=Condition 1 9:02:41 (Aorta) Ao 139/59/91 9:03:30 The LCA was injected and visualized at various angles. OMNIPAQUE, 350 MG, 150ML 150ML used. 9:06:24 The RCA was injected and visualized at various angles. OMNIPAQUE, 350 MG, 150ML 150ML used. 9:06:36 HR=59 bpm, RPAG=872/71 mmhg, SpO2=93.0 %, Resp=16 B/min, Pain=0, Mali=10, Davis=2 9:08:04 A WIRE, EXCHANGE 260CM 3MMJ 260CM was inserted via Radial (right). 9:08:15 Catheter was removed 9:09:20 Case End 9:09:51 Catheter(s) removed without difficulty Radial Compression Device Used. 14 mLs of air placed in BAND, RADIAL COMPRESSION TR LARGE 29 29C M. Affected 9:09:55 hand 94 % O2 saturation. 9:10:01 No case complications noted. 9:10:03 Cine recording checked. 9:10:08 Bedside Report will be given. 9:11:37 HR=53 bpm, QSLN=020/61 mmhg, SpO2=95.0 %, Resp=16 B/min, Pain=0, Mali=10, Davis=2 Assessment: Final Case, HR=53 BPM, YRJB=492/61 mmhg, Edema=None, Color=Normal, Skin = Warm, Dry Right Pulses: Kiran Ped=2, Femoral=2, Radial=2 9:14:40 Left Pulses: Kiran Ped=2, Femoral=2 Neurological: State=Alert, Ox3 Respiration: Resp=16 B/min, SpO2=95 % 9:15:15 Vitals capture stopped. 9:15:18 Patient moved to [facility] End Study - Contrast Media Used In Study Contrast Total Opened (mL) Total Used (mL) Total Wasted (mL) Omnipaque 60 60 0 End Study - Maximum Contrast Load Max Contrast Load (mL) 206.3 End Study - Radiation Exposure Fluoro Time (minutes) 2.2 End Study - Patient Disposition Complications Transferred To Telemetry Bed
[2017-05-09] MEDS ORDERED: MISC INFORMATION XX ONE (09:30)
[2017-05-09] MEDS ORDERED: SODIUM CHLORIDE 0.9% FLUSH 10 ML FLUSH IV FLUSH SCH (09:30)
[2017-05-09] MEDS ORDERED: BACITRACIN OINT 0.9 GM PKT TOP ONE (09:30)
[2017-05-09] MEDS ORDERED: SODIUM CHLORIDE 0.9% FLUSH 10 ML FLUSH IV FLUSH PRN (09:30)
[2017-05-09] MEDS ORDERED: PAPAVERINE INJ 60 MG, NITROGLYCERIN INJ 100 MCG, DILTIAZEM INJ 100 MG in SODIUM CHLORID... IRRIGATION SCH (11:30)
[2017-05-09] MEDS ORDERED: INSULIN REGULAR (IV INFUSION) 100 UNITS in SODIUM CHLORIDE 0.9% INJ 99 ML IV PRN (11:30)
[2017-05-09] MEDS ORDERED: CHLORHEXIDINE GLUCONATE 4% SOLN 120 ML BTL TOPICAL SCH (11:30)
--- NOTE | 2017-05-09 12:10 | RADRPT ---
EXAM DATE/TIME: 05/09/2017 11:36 [facility] COMPARISON: No previous studies available for comparison. INDICATIONS : Preop aortic valve replacement. MEDICAL HISTORY : Hypertension. Diabetes. SURGICAL HISTORY : Cardiac cath. ENCOUNTER: Initial ACUITY: 1 day PAIN SCORE: 0/10 LOCATION: Bilateral neck PEAK SYSTOLIC VELOCITIES (cm/sec): ICA/CCA RATIO: Right: 1.2 Left: 1.1 ICA: Right: 98 Left: 105 CCA: Right: 82 Left: 94 ECA: Right: 89 Left: 83 VERTEBRAL: Right: 57 antegrade Left: 49 antegrade Elevated flow velocities and ICA/CCA ratios have been found to correlate with increased degrees of vessel stenosis, calculated as percentage of diameter relative to a normal segment of distal ICA/CCA FINDINGS: RIGHT CAROTID: No significant stenosis is visualized. The waveforms are within normal limits. LEFT CAROTID: No significant stenosis is visualized. There is mild calcified plaque in the left bulb. The waveforms are within normal limits. VERTEBRAL ARTERIES: Antegrade flow is seen in both vertebral arteries. MISCELLANEOUS: None. CONCLUSION: Mild plaquing with no evidence of a hemodynamically significant lesion. Aron Deleon MD on May 09, 2017 at 12:08 Board Certified Radiologist. This report was verified electronically.
--- NOTE | 2017-05-09 13:46 | MA ---
cc: LIAM BOBO M.D. DATE 05/09/2017 PROCEDURE PERFORMED Left heart catheterization. Coronary arteriography. Right radial approach. PROCEDURE TECHNIQUE The patient was brought to the cardiac catheterization laboratory and the area of the right radial artery was prepped and draped in usual sterile manner. Following 5 mL of 1% Xylocaine for local anesthesia, the right radial artery was entered with a needle without difficulty for placement of a floppy guidewire. A 5-Belarusian short introducer sheath was placed in the right radial artery without difficulty. The usual cocktail containing Verapamil, heparin and nitroglycerin was administered. The left heart study was performed with the use of a TIG catheter. Multiple projections of the left and right coronary arteries were taken. Left ventricular gram and aortogram were not performed in the interest of reducing contrast load due to chronic renal insufficiency. Minimal contrast load was utilized. Following angiography, the catheter was removed and introducer sheath removed and a TR band placed. The patient tolerated procedure well with no immediate complications. HEMODYNAMIC RESULTS The left ventricle was not entered. For complete hemodynamic details, please see accompanying paperwork. ANGIOGRAPHIC FINDINGS LEFT VENTRICLE Not performed. Left coronary artery: The left coronary arises normally from the left coronary sinus. The left main trunk is a large-caliber vessel and normal. Left anterior descending artery: The LAD is a large-caliber vessel whose course is around the apex. The LAD gives rise to two major diagonal branches and one large septal perforating branch. The LAD is large in caliber and normal. The diagonal branches are large in caliber and normal. The septal perforating branch is large in caliber and normal. Circumflex: Nondominant. The main circumflex gives rise to a posterolateral branch and a posterior ventricular branch. The main circumflex and its branches are large in caliber and normal. Right coronary artery: Dominant. The right coronary gives rise to a right ventricular marginal branch, posterior descending branch and two posterior ventricular branches. This is a large caliber vessel. The main right coronary artery and its branches are normal. DIAGNOSIS 1. Normal coronary arteries. 2. Moderate to severe aortic insufficiency. 3. Mild to moderate left ventricular dysfunction. COMMENT/RECOMMENDATIONS Angiographically, this patient has no hemodynamically significant coronary artery disease. He will need further evaluation by cardiothoracic surgery for possible aortic valve replacement in the near future. Plans have been discussed with the patient and his family. Liam MD SHERMAN Ortiz /9:17 AM /1:26 PM
--- NOTE | 2017-05-09 14:38 | RADRPT ---
EXAM DATE/TIME: 05/09/2017 14:12 [facility] COMPARISON: No previous studies available for comparison. INDICATIONS : Pre op AVR. MEDICAL HISTORY : Hypertension. Diabetes mellitus type II. SURGICAL HISTORY : heart cath ENCOUNTER: Initial ACUITY: 1 day PAIN SCORE: 0/10 LOCATION: Bilateral chest FINDINGS: The heart is enlarged. There are small bilateral effusions. There is advanced COPD change within the pulmonary parenchyma. There is diffuse interstitial prominence bilaterally which appears chronic in e tiology. No suspicious mass lesions are identified. The osseous structures are grossly intact. CONCLUSION: 1. Cardiomegaly with moderate COPD changes. Nain Zambrano MD on May 09, 2017 at 14:35 Board Certified Radiologist. This report was verified electronically.
--- NOTE | 2017-05-09 14:59 | EKG ---
Date Performed: 05/09/2017 Time Performed: 07:38:02 PTAGE: 71 years EKG: Sinus bradycardia IV conduction defect Poor R wave progression - probable normal variant Se ptal and lateral ST-T changes are nonspecific Abnormal ECG PREVIOUS TRACING : 04/25/2017 08.41 Compared to prior tracing no significant change DOCTOR: Mamie Lopez Interpretating Date/Time 05/09/2017 14:54:01
[2017-05-09 15:18] LABS: BILIRUBIN, URINE NEG (NEG); BLOOD, URINE NEG (NEG); GLUCOSE,URINE NEG (NEG); KETONE, URINE NEG (NEG); MUCUS URINE FEW /lpf (OCC); NITRITE,URINE NEG (NEG); PH, URINE 5.5 (5.0-8.5); URINE COLOR LIGHT-YELLOW (YELLW/STRAW); URINE LEUKOCYTE ESTERASE NEG (NEG)
--- NOTE | 2017-05-10 08:47 | MB ---
cc: PILI KIRKPATRICK DATE OF CONSULTATION 05/09/17 DATE OF 1945 HISTORY OF PRESENT ILLNESS A 71-year-old male, patient of Dr. Virgie Dunaway, Dr. Acosta, with history of aortic insufficiency, recently underwent echocardiogram on April 15, had a worsening EF of 40%. The right ventricle was mildly dilated. The left ventricle had some dilated chamber size, some global reduction of systolic function. No aortic stenosis and moderate +2, +3 aortic insufficiency. The patient underwent transesophageal echocardiogram on the which also showed mildly dilated left and right ventricle, mild global left ventricular systolic dysfunction, moderate to severe aortic insufficiency. Aortic root of 3.0 cm. We were consulted to evaluate for aortic valve replacement. PAST MEDICAL HISTORY The patient's past medical history includes moderate to severe aortic insufficiency, dilated cardiomyopathy, ejection fraction of 40%. Libertad's granulomatosis, chronic kidney disease stage IV, chronic anemia, hypertension. Had an episode of pulmonary hemorrhage 12 years ago. Was recently hospitalized in November for pneumonia at [facility]. The surgeries include right cataract surgery. History of diabetes mellitus. ALLERGIES THE PATIENT HAS ALLERGIES TO CHYNA INHIBITORS, ANGIOTENSIN RECEPTIVE BLOCKERS. MEDICATIONS Home medications include: 1. Ferrous sulfate. 2. Zetia. 3. Atorvastatin. 4. Clonidine patch. 5. Hydralazine. 6. Imdur. 7. Metoprolol. 8. Amlodipine. 9. Clorthalidone. 10. Januvia. 11. Multivitamin. 12. Imuran. FAMILY HISTORY Mother from old age at 83. Father with emphysema. SOCIAL HISTORY The patient , one child. No tobacco. Drinks two shots of vodka per evening. 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 REVIEW OF SYSTEMS GENERAL: In general, no night sweats, fever, heat, cold intolerance. SKIN: No psoriasis, itching or hives. HEENT: No blurred vision, hearing loss. RESPIRATORY: Mild shortness of breath with exertion. No chest pain. No paroxysmal nocturnal dyspnea. No orthopnea. GASTROINTESTINAL: No diarrhea, vomiting. GENITOURINARY: No burning, frequency, urgency. QUARTER FOLDER: No history of TIA, CVA, seizure disorder. ENDOCRINOLOGY: Positive for diabetes mellitus. PHYSICAL EXAMINATION VITAL SIGNS: On exam blood pressure 150/70, heart rate of 80, temperature afebrile. O2 sat 95 on room air. GENERAL: Patient is awake, alert, no acute distress. HEENT: Head is normocephalic, atraumatic. Pupils equal and reactive. Oral mucosa pink, moist. NECK: Supple. No JVD. HEART: Heart sounds S1-S2, grade 2/6 diastolic murmur best on the left sternal border. LUNGS: Clear to auscultation. No wheezes, rales or rhonchi. ABDOMEN: Soft, nontender. No masses or organomegaly. EXTREMITIES: No cyanosis, clubbing or edema. LABORATORY DATA Lab work shows hemoglobin 10, hematocrit 30, white cell count 3.8, platelet count 198, sodium 139, potassium 4.9, BUN of 43 with creatinine of 1.93. The patient underwent cardiac cath, no obstructive cardiac disease. EF on that was 40-45%. IMPRESSION The patient very pleasant 71-year-old male with moderate to severe aortic insufficiency, EF worsening, now at 40-45%. We have been asked to evaluate for aortic valve replacement. The patient has been seen and evaluated by Dr. Pili Kirkpatrick. PLAN Plan will be for aortic valve replacement on the first june. The patient is requesting to have surgery after Thanksgiving. In the meantime, he does have a equities analyst, Dr. Morejon, had a recent CT chest which will have to follow up that he is actually having new one next week. He had one that was following a recent hospitalization with pneumonia. Will need to obtain that CT at that time. He also has Dr. Dawit Patel following for nephrology which may need a consultation pre or post surgery. Dictated by: VELIA Norman MD DEBBIE Jules/JULIO CÉSAR /6:11 PM /8:36 AM
--- NOTE | 2017-05-10 08:47 | MB ---
cc: PILI KIRKPATRICK DATE OF CONSULTATION 05/09/17 DATE OF 1945 HISTORY OF PRESENT ILLNESS A 71-year-old male, patient of Dr. Virgie Dunaway, Dr. Acosta, with history of aortic insufficiency, recently underwent echocardiogram on April 15, had a worsening EF of 40%. The right ventricle was mildly dilated. The left ventricle had some dilated chamber size, some global reduction of systolic function. No aortic stenosis and moderate +2, +3 aortic insufficiency. The patient underwent transesophageal echocardiogram on the which also showed mildly dilated left and right ventricle, mild global left ventricular systolic dysfunction, moderate to severe aortic insufficiency. Aortic root of 3.0 cm. We were consulted to evaluate for aortic valve replacement. PAST MEDICAL HISTORY The patient's past medical history includes moderate to severe aortic insufficiency, dilated cardiomyopathy, ejection fraction of 40%. Libertad's granulomatosis, chronic kidney disease stage IV, chronic anemia, hypertension. Had an episode of pulmonary hemorrhage 12 years ago. Was recently hospitalized in November for pneumonia at [facility]. The surgeries include right cataract surgery. History of diabetes mellitus. ALLERGIES THE PATIENT HAS ALLERGIES TO CHYNA INHIBITORS, ANGIOTENSIN RECEPTIVE BLOCKERS. MEDICATIONS Home medications include: 1. Ferrous sulfate. 2. Zetia. 3. Atorvastatin. 4. Clonidine patch. 5. Hydralazine. 6. Imdur. 7. Metoprolol. 8. Amlodipine. 9. Clorthalidone. 10. Januvia. 11. Multivitamin. 12. Imuran. FAMILY HISTORY Mother from old age at 83. Father with emphysema. SOCIAL HISTORY The patient , one child. No tobacco. Drinks two shots of vodka per evening. 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 REVIEW OF SYSTEMS GENERAL: In general, no night sweats, fever, heat, cold intolerance. SKIN: No psoriasis, itching or hives. HEENT: No blurred vision, hearing loss. RESPIRATORY: Mild shortness of breath with exertion. No chest pain. No paroxysmal nocturnal dyspnea. No orthopnea. GASTROINTESTINAL: No diarrhea, vomiting. GENITOURINARY: No burning, frequency, urgency. HOUSE REPAIRER: No history of TIA, CVA, seizure disorder. ENDOCRINOLOGY: Positive for diabetes mellitus. PHYSICAL EXAMINATION VITAL SIGNS: On exam blood pressure 150/70, heart rate of 80, temperature afebrile. O2 sat 95 on room air. GENERAL: Patient is awake, alert, no acute distress. HEENT: Head is normocephalic, atraumatic. Pupils equal and reactive. Oral mucosa pink, moist. NECK: Supple. No JVD. HEART: Heart sounds S1-S2, grade 2/6 diastolic murmur best on the left sternal border. LUNGS: Clear to auscultation. No wheezes, rales or rhonchi. ABDOMEN: Soft, nontender. No masses or organomegaly. EXTREMITIES: No cyanosis, clubbing or edema. LABORATORY DATA Lab work shows hemoglobin 10, hematocrit 30, white cell count 3.8, platelet count 198, sodium 139, potassium 4.9, BUN of 43 with creatinine of 1.93. The patient underwent cardiac cath, no obstructive cardiac disease. EF on that was 40-45%. IMPRESSION The patient very pleasant 71-year-old male with moderate to severe aortic insufficiency, EF worsening, now at 40-45%. We have been asked to evaluate for aortic valve replacement. The patient has been seen and evaluated by Dr. Pili Kirkpatrick. PLAN Plan will be for aortic valve replacement on the first june. The patient is requesting to have surgery after Thanksgiving. In the meantime, he does have a assistant financial accountant, Dr. Morejon, had a recent CT chest which will have to follow up that he is actually having new one next week. He had one that was following a recent hospitalization with pneumonia. Will need to obtain that CT at that time. He also has Dr. Dawit Patel following for nephrology which may need a consultation pre or post surgery. Dictated by: VELIA Normna MD DEBBIE Jules/JULIO CÉSAR /6:11 PM /8:36 AM
--- NOTE | 2017-05-10 08:47 | MB ---
cc: PILI KIRKPATRICK DATE OF CONSULTATION 05/09/17 DATE OF 1945 HISTORY OF PRESENT ILLNESS A 71-year-old male, patient of Dr. Virgie Dunaway, Dr. Acosta, with history of aortic insufficiency, recently underwent echocardiogram on April 15, had a worsening EF of 40%. The right ventricle was mildly dilated. The left ventricle had some dilated chamber size, some global reduction of systolic function. No aortic stenosis and moderate +2, +3 aortic insufficiency. The patient underwent transesophageal echocardiogram on the which also showed mildly dilated left and right ventricle, mild global left ventricular systolic dysfunction, moderate to severe aortic insufficiency. Aortic root of 3.0 cm. We were consulted to evaluate for aortic valve replacement. PAST MEDICAL HISTORY The patient's past medical history includes moderate to severe aortic insufficiency, dilated cardiomyopathy, ejection fraction of 40%. Libertad's granulomatosis, chronic kidney disease stage IV, chronic anemia, hypertension. Had an episode of pulmonary hemorrhage 12 years ago. Was recently hospitalized in November for pneumonia at [facility]. The surgeries include right cataract surgery. History of diabetes mellitus. ALLERGIES THE PATIENT HAS ALLERGIES TO CHYNA INHIBITORS, ANGIOTENSIN RECEPTIVE BLOCKERS. MEDICATIONS Home medications include: 1. Ferrous sulfate. 2. Zetia. 3. Atorvastatin. 4. Clonidine patch. 5. Hydralazine. 6. Imdur. 7. Metoprolol. 8. Amlodipine. 9. Clorthalidone. 10. Januvia. 11. Multivitamin. 12. Imuran. FAMILY HISTORY Mother from old age at 83. Father with emphysema. SOCIAL HISTORY The patient , one child. No tobacco. Drinks two shots of vodka per evening. 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 REVIEW OF SYSTEMS GENERAL: In general, no night sweats, fever, heat, cold intolerance. SKIN: No psoriasis, itching or hives. HEENT: No blurred vision, hearing loss. RESPIRATORY: Mild shortness of breath with exertion. No chest pain. No paroxysmal nocturnal dyspnea. No orthopnea. GASTROINTESTINAL: No diarrhea, vomiting. GENITOURINARY: No burning, frequency, urgency. ALMOND PAN FINISHER: No history of TIA, CVA, seizure disorder. ENDOCRINOLOGY: Positive for diabetes mellitus. PHYSICAL EXAMINATION VITAL SIGNS: On exam blood pressure 150/70, heart rate of 80, temperature afebrile. O2 sat 95 on room air. GENERAL: Patient is awake, alert, no acute distress. HEENT: Head is normocephalic, atraumatic. Pupils equal and reactive. Oral mucosa pink, moist. NECK: Supple. No JVD. HEART: Heart sounds S1-S2, grade 2/6 diastolic murmur best on the left sternal border. LUNGS: Clear to auscultation. No wheezes, rales or rhonchi. ABDOMEN: Soft, nontender. No masses or organomegaly. EXTREMITIES: No cyanosis, clubbing or edema. LABORATORY DATA Lab work shows hemoglobin 10, hematocrit 30, white cell count 3.8, platelet count 198, sodium 139, potassium 4.9, BUN of 43 with creatinine of 1.93. The patient underwent cardiac cath, no obstructive cardiac disease. EF on that was 40-45%. IMPRESSION The patient very pleasant 71-year-old male with moderate to severe aortic insufficiency, EF worsening, now at 40-45%. We have been asked to evaluate for aortic valve replacement. The patient has been seen and evaluated by Dr. Pili Kirkpatrick. PLAN Plan will be for aortic valve replacement on the first june. The patient is requesting to have surgery after Thanksgiving. In the meantime, he does have a rug sample beveler, Dr. Morejon, had a recent CT chest which will have to follow up that he is actually having new one next week. He had one that was following a recent hospitalization with pneumonia. Will need to obtain that CT at that time. He also has Dr. Dawit Patel following for nephrology which may need a consultation pre or post surgery. Dictated by: VELIA Norman MD DEBBIE Jules/JULIO CÉSAR /6:11 PM /8:36 AM
--- NOTE | 2017-05-13 09:45 | RSPPFT ---
DATE OF PROCEDURE: 05/09/17 COMMENTS: Spirometry shows FVC of 2.3 at 57% of predicted, FEV1 of 2.0 at 62%, FEV1/FVC ratio is normal. Flow is normal at FEF 25, FEF 50, FEF 75 and FEF 25-75. Post-bronchodilator study was not performed. IMPRESSION: 1. Findings are suggestive of restrictive lung disease. 2. Post-bronchodilator study was not done. 3. Patient will need a complete pulmonary function study for further evaluation.
== END 2017-05-09 16:00 | disposition home or self-care (01) ==
LOC: HDOC 05:56 → HDIC 05:56 → HDOC 16:00
PROVIDERS: ATTEND Internal Medicine Interventional Cardiology
DX: I35.1 Nonrheumatic aortic (valve) insufficiency (principal); R94.39 Abnormal result of other cardiovascular function study; R00.1 Bradycardia, unspecified; I65.22 Occlusion and stenosis of left carotid artery; I13.10 Hypertensive heart and chronic kidney disease without heart failure, with stage 1 through stage 4 chronic kidney disease, or unspecified chronic kidney disease; E11.22 Type 2 diabetes mellitus with diabetic chronic kidney disease; N18.4 Chronic kidney disease, stage 4 (severe); J44.9 Chronic obstructive pulmonary disease, unspecified; M31.30 Wegener's granulomatosis without renal involvement
CPT/HCPCS: 71020; 81001; 87641; 93005; 93454; 93880; 94010; 99152; C1769; C1893; J1644; J2250; J3010; J7030; J7040; J7608; Q9967

== ENCOUNTER 2017-07-29 03:16 | Emergency (ER) | payer MEDICARE, OTHER ==
[~2017-07-29] VITALS: Ht 175.3 cm; Wt 73.0 kg
[~2017-07-29 03:16] MED LIST changes: +EZET10 PO; -IMUR50TA PO; +IMUR50TA5 PO; +METO1TAB9 PO; -METO50TA11 PO; -ZETI10TA5 PO
[2017-07-29 03:17] VITALS: BP 141/71; PULSE 87; RESP 16; TEMP 98.8; O2SAT 95
[2017-07-29] MEDS ORDERED: ISOS10TA PO (03:42)
[2017-07-29] MEDS ORDERED: ASPI-516 CHEW (03:42)
[2017-07-29] MEDS ORDERED: FERR325T18 PO (03:42)
[2017-07-29] MEDS ORDERED: PANT20TA2 PO ×2 (03:42→11:10)
[2017-07-29 03:45] VITALS: RESP 16; O2SAT 98
[2017-07-29 04:03] LABS: AUTOMATED NEUTROPHIL # 4.1 TH/MM3 (1.8-7.7); BASOPHIL % 0.6 % (0.0-2.0); EOSINOPHIL # 0.2 TH/MM3 (0-0.4); EOSINOPHIL % 4.5 % (0.0-4.0); HEMOGLOBIN 8.9 GM/DL (13.0-17.0); LYMPH % 10.9 % (9.0-44.0); LYMPHOCYTE # 0.6 TH/MM3 (1.0-4.8); MEAN CELL VOLUME 99.8 FL (80.0-100.0); MEAN CORPUSCULAR HEMOGLOBIN 34.1 PG (27.0-34.0); MEAN CORPUSCULAR HGB CONC 34.2 % (32.0-36.0); MEAN PLATELET VOLUME 7.4 FL (7.0-11.0); MONO % 7.1 % (0.0-8.0); MONOCYTE # 0.4 TH/MM3 (0-0.9); NEUT % 76.9 % (16.0-70.0); PLATELET COUNT 250 TH/MM3 (150-450); RED BLOOD COUNT 2.61 MIL/MM3 (4.50-5.90); RED CELL DISTRIBUTION WIDTH 15.8 % (11.6-17.2); WHITE BLOOD COUNT 5.3 TH/MM3 (4.0-11.0)
--- NOTE | 2017-07-29 04:15 | PD ---
HPI Chief Complaint: Flank/Kidney Pain Time Seen by Provider: 03:35 Travel History International Travel<30 days: No Contact w/Intl Traveler<30days: No Traveled to known affect area: No History of Present Illness HPI The patient is a 72 year old male who presents to the [facility] emergency department with a history of left side pain that began at 4-5 pm yesterday. The patient reports that the pain is been constant although waxes and wanes in severity. The patient reports that at its most severe it was a 6-7 out of 10 in severity, currently is down to a 3 out of 10 in severity. He reports that he took Tylenol for pain earlier in the evening. The patient's recent history is, located by having an aortic valve replacement done 1 month ago at the [facility]. The patient denies having any coronary artery disease or coronary artery bypass grafting. He reports that he has been healing well. He reports that recently he has noted a superficial pain in the left anterior chest. He reports that the pain in his left side is worse with taking a deep breath. He denies having any dysuria, hematuria, urinary urgency, or frequency. He denies having any fevers or chills, cough or congestion. He reports that he has had some night sweats since having the surgery, however the graduation coach reported to him that this can be normal. He denies having any calf pain, erythema, or edema. He denies having any prior history of DVT or PE. He denies being on any anticoagulation other than a low-dose aspirin daily. Otherwise on review of systems, the patient denies having any neck pain , shortness of breath, abdominal pain, vomiting, diarrhea, or neurologic symptoms. He denies any heavy lifting or recent trauma to the area. 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 Autoimmune Disease: Yes (LIBERTAD'S DISEASE) Cardiovascular Problems: Yes Diabetes: Yes Patient Takes Glucophage: No Genitourinary: Yes (KIDNEY DISEASE) Hypertension: Yes Respiratory: Yes Past Surgical History Narrative Surgical The patient's past surgical history is significant for aortic valve replacement. Cardiac Surgery: Yes (OPEN HEART REPLACE AORTIC VALVE) Social History Alcohol Use: Yes (OCC) Tobacco Use: No Substance Use: No Allergies-Medications (Allergen,Severity, Reaction): Coded Allergies: CHYNA Inhibitors (Verified Allergy, Unknown, 07/29/17) ARB-Angiotensin Receptor Antagonist (Verified Allergy, Unknown, 07/29/17) Reported Meds & Prescriptions Reported Meds & Active Scripts Active Lorcet (Hydrocodone-Acetaminophen) 5-325 mg Tab 1 Tab PO Q6H PRN Pantoprazole (Pantoprazole Sodium) 20 Mg Tab 20 Mg PO DAILY Reported Isosorbide Dinitrate 10 Mg Tab 10 Mg PO TID Ferrous Sulfate 325 Mg (65 Mg Iron) Tablet 325 Mg PO DAILY Aspirin 81 Mg Chew 162 Mg CHEW DAILY Multiple Vitamin 1 Tab 1 Tab PO DAILY Imuran (Azathioprine) 50 Mg Tab 125 Mg PO DAILY Hazardous agent: use appropriate precautions for handling and disposal. Januvia (Sitagliptin Phosphate) 50 Mg Tab 50 Mg PO DAILY Zetia (Ezetimibe) 10 Mg Tab 10 Mg PO DAILY Clonidine 168 HR Patch (Clonidine HCl) 0.3 Mg/24 Hr Patch 1 Patch T-DERMAL Q7D Atorvastatin (Atorvastatin Calcium) 10 Mg Tab 10 Mg PO HS Hydralazine HCl 25 Mg Tablet 25 Mg PO BID Metoprolol Succinate ER 24 HR (Metoprolol Succinate) 50 Mg Tab 50 Mg PO DAILY Amlodipine (Amlodipine Besylate) 10 Mg Tab 10 Mg PO DAILY Review of Systems Except as stated in HPI: all other systems reviewed are Neg General / Constitutional: No: Fever Eyes: No: Visual changes HENT: No: Headaches Cardiovascular: Positive: Chest Pain or Discomfort Respiratory: No: Shortness of Breath Gastrointestinal: No: Nausea, Vomiting, Diarrhea, Abdominal Pain Genitourinary: Positive: Flank Pain, No: Urgency, Frequency, Dysuria Musculoskeletal: No: Pain Skin: No Rash Neurologic: No: Weakness Psychiatric: No: Depression Endocrine: No: Polydipsia Hematologic/Lymphatic: No: Easy Bruising Physical Exam Narrative General: The patient is a well-developed well-nourished male in no acute distress. Head and Neck exam: Head is normocephalic atraumatic. Eyes: EOMI, pupils are equal round and reactive to light. Nose: Midline septum with pink mucous membranes Mouth: Dentition unremarkable. Moist mucus membranes. Posterior oropharynx is not erythematous. No tonsillar hypertrophy. Uvula midline. Airway patent. Neck: No palpable lymphadenopathy. No nuchal rigidity. No thyromegaly. Cardiovascular: Regular rate and rhythm with a 1/6 systolic murmur, no gallops or rubs. No pulse deficit to the extremities on simultaneous auscultation and palpation of his radial artery Lungs: Clear to auscultation bilaterally. No wheezes, rhonchi, or rales. Abdomen: Soft, without tenderness to palpation in all 4 quadrants of the abdomen. No guarding, rebound, or rigidity normal bowel sounds are audible. No tenderness on palpation of McBurney's point. Extremities: No clubbing, cyanosis, or edema. 2+ pulses in all 4 extremities. No calf tenderness on palpation. Negative Homans sign. No palpable cords. Back: No spinous process tenderness to palpation. No costovertebral angle tenderness to palpation. The patient shows the area of pain as being just above the CVA area and towards the posterior axillary line involving the lower chest. There is no chest wall tenderness on palpation. There is no evidence of associated rash, erythema or ecchymosis. Neurologic Exam: Grossly nonfocal. Skin Exam: No rash noted. Intact skin that is warm and dry. The patient's midline chest wound appears to be healing well without any signs of erythema, drainage, or edema. Data Data Last Documented VS Vital Signs Date Time Temp Pulse Resp B/P (MAP) Pulse Ox O2 Delivery O2 Flow Rate FiO2 07/29/17 11:42 63 14 132/75 (94) 98 Room Air 07/29/17 03:17 98.8 Orders Orders Electrocardiogram (07/29/17 03:35) Complete Blood Count With Diff (07/29/17 03:35) Comprehensive Metabolic Panel (07/29/17 03:35) Lipase (07/29/17 03:35) Urinalysis - C+S If Indicated (07/29/17 03:35) Magnesium (Mg) (07/29/17 03:35) Iv Access Insert/Monitor (07/29/17 03:35) Ecg Monitoring (07/29/17 03:35) Oximetry (07/29/17 03:35) D-Dimer (07/29/17 04:48) Ventilation & Perfusion Scan (07/29/17 05:48) Chest, Single Ap (07/29/17 05:49) Ed Discharge Order (07/29/17 11:15) Labs Laboratory Tests Test 07/29/17 03:45 07/29/17 04:45 07/29/17 05:10 White Blood Count 5.3 TH/MM3 Red Blood Count 2.61 MIL/MM3 Hemoglobin 8.9 GM/DL Hematocrit 26.0 % Mean Corpuscular Volume 99.8 FL Mean Corpuscular Hemoglobin 34.1 PG Mean Corpuscular Hemoglobin Concent 34.2 % Red Cell Distribution Width 15.8 % Platelet Count 250 TH/MM3 Mean Platelet Volume 7.4 FL Neutrophils (%) (Auto) 76.9 % Lymphocytes (%) (Auto) 10.9 % Monocytes (%) (Auto) 7.1 % Eosinophils (%) (Auto) 4.5 % Basophils (%) (Auto) 0.6 % Neutrophils # (Auto) 4.1 TH/MM3 Lymphocytes # (Auto) 0.6 TH/MM3 Monocytes # (Auto) 0.4 TH/MM3 Eosinophils # (Auto) 0.2 TH/MM3 Basophils # (Auto) 0.0 TH/MM3 CBC Comment DIFF FINAL Differential Comment Blood Urea Nitrogen 33 MG/DL Creatinine 1.71 MG/DL Random Glucose 167 MG/DL Total Protein 7.2 GM/DL Albumin 3.1 GM/DL Calcium Level 9.1 MG/DL Magnesium Level 1.6 MG/DL Alkaline Phosphatase 90 U/L Aspartate Amino Transf (AST/SGOT) 18 U/L Alanine Aminotransferase (ALT/SGPT) 17 U/L Total Bilirubin 0.3 MG/DL Sodium Level 139 MEQ/L Potassium Level 4.3 MEQ/L Chloride Level 107 MEQ/L Carbon Dioxide Level 23.7 MEQ/L Anion Gap 8 MEQ/L Estimat Glomerular Filtration Rate 40 ML/MIN Lipase 292 U/L D-Dimer Quantitative (PE/DVT) 4.16 MG/L FEU Urine Color LIGHT-YELLOW Urine Turbidity CLEAR Urine pH 5.5 Urine Specific [place] 1.011 Urine Protein 100 mg/dL Urine Glucose (UA) NEG mg/dL Urine Ketones NEG mg/dL Urine Occult Blood NEG Urine Nitrite NEG Urine Bilirubin NEG Urine Urobilinogen LESS THAN 2.0 MG/DL Urine Leukocyte Esterase NEG Urine RBC 1 /hpf Urine WBC 1 /hpf Urine Bacteria RARE /hpf Urine Hyaline Casts 3 /lpf Urine Granular Casts 3 /lpf Microscopic Urinalysis Comment CULT NOT INDICATED MDM Medical Decision Making Medical Screen Exam Complete: Yes Emergency Medical Condition: Yes Medical Record Reviewed: Yes Differential Diagnosis Pyelonephritis, versus kidney stone, versus muscle strain, versus pulmonary embolism versus pneumonia, versus shingles Narrative Course During the course of the patients emergency department visit, the patients history, examination, and differential diagnosis were reviewed with the patient. The patient was placed on a retail account representative with oximetry and frequent blood pressure monitoring. The patient had IV access obtained and blood work sent for analysis. An EKG was done that shows sinus rhythm with a heart rate of 65, QRS duration 121 ms, QTC [address] segment elevation is noted. T waves are inverted in 1, aVL, V1, V2, V4, V5, V6. The patients laboratory studies were reviewed and remarkable for a CBC that shows a white count of 5.3, hemoglobin 8.9 which the patient reports having history of anemia, platelets 250, neutrophils 76.9. CMP is remarkable for BUN of 33, creatinine 1.71, albumin 3.1, glucose 167, lipase 292 , d-dimer elevated at 4.16, we discussed doing a CTA, however given the patient's history of renal insufficiency he prefers to do a VQ scan. Urinalysis is unremarkable. Radiology studies were reviewed and remarkable for a chest x-ray that shows no evidence of acute cardiopulmonary disease The patient's case is checked out to the oncoming emergency physician pending VQ scan results. Diagnosis Primary Impression: Pleuritic chest pain Scripts Hydrocodone-Acetaminophen (Lorcet) 5-325 mg Tab 1 TAB PO Q6H Y for PAIN, #15 TAB 0 Refills Prov: Dawit Loera MD 07/29/17 Pantoprazole (Pantoprazole) 20 Mg Tab 20 MG PO DAILY for Reflux, #30 TAB 0 Refills Prov: Dawit Loera MD 07/29/17 Aviva Calderon MD Jul 29, 2017 04:15
[2017-07-29 04:23] LABS: ALBUMIN 3.1 GM/DL (3.4-5.0); AST (GOT) 18 U/L (15-37); BICARBONATE 23.7 MEQ/L (21.0-32.0); BLOOD UREA NITROGEN 33 MG/DL (7-18); CALCIUM 9.1 MG/DL (8.5-10.1); CHLORIDE 107 MEQ/L (98-107); CREATININE 1.71 MG/DL (0.60-1.30); GLOMERULAR FILTRATION RATE 40 ML/MIN (>89); GLUCOSE,RANDOM 167 MG/DL (74-106); LIPASE 292 U/L (73-393); MAGNESIUM 1.6 MG/DL (1.5-2.5); SODIUM (NA) 139 MEQ/L (136-145)
[2017-07-29 04:25] LABS: ALT (GPT) 17 U/L (12-78)
[2017-07-29 04:28] LABS: ALKALINE PHOSPHATASE 90 U/L (45-117); TOTAL BILIRUBIN ADULT 0.3 MG/DL (0.2-1.0); TOTAL PROTEIN 7.2 GM/DL (6.4-8.2)
[2017-07-29 05:29] LABS: BACTERIA, URINE RARE /hpf; BILIRUBIN, URINE NEG (NEG); BLOOD, URINE NEG (NEG); GLUCOSE,URINE NEG (NEG); HYALINE CAST, URINE 3 /lpf (RARE); KETONE, URINE NEG (NEG); NITRITE,URINE NEG (NEG); PH, URINE 5.5 (5.0-8.5); URINE COLOR LIGHT-YELLOW (YELLW/STRAW); URINE LEUKOCYTE ESTERASE NEG (NEG)
[2017-07-29 06:01] VITALS: BP 161/86; PULSE 66; RESP 16; O2SAT 98
--- NOTE | 2017-07-29 06:33 | RADRPT ---
EXAM DATE/TIME: 07/29/2017 06:06 [facility] COMPARISON: No previous studies available for comparison. INDICATIONS : Flank pain to left lung. MEDICAL HISTORY : None. SURGICAL HISTORY : CABG. ENCOUNTER: Initial ACUITY: 1 day PAIN SCORE: 6/10 LOCATION: Left chest FINDINGS: The patient is status post sternotomy. The heart size is normal. The lungs are clear. CONCLUSION: No acute disease. Adis Klein MD on July 29, 2017 at 6:30 Board Certified Radiologist. This report was verified electronically.
[2017-07-29 07:10] VITALS: BP 139/82; PULSE 64; RESP 14; O2SAT 98
--- NOTE | 2017-07-29 10:34 | RADRPT ---
EXAM DATE/TIME: 07/29/2017 10:06 [facility] COMPARISON: CHEST SINGLE AP, July 29, 2017, 6:06. INDICATIONS : Left sided chest pain with dyspnea. DOSE: 8.5 mCi Tc99m MAA IV 1.9 mCi Tc99m DTPA aerosol MEDICAL HISTORY : Hypertension. Diabetes mellitus type 2. Wegeners granulomatosis. SURGICAL HISTORY : Aortic valve replacement. ENCOUNTER: Initial ACUITY: 2 days PAIN SCALE: 8/10 LOCATION: Left chest TECHNIQUE: Following five minutes of tidal breathing of DTPA aerosol, planar images of the lungs were performed in eight projections. The patient was then injected with MAA, and eight-view perfusion scan was perf ormed. FINDINGS: There is a homogeneous pattern of aerosol delivery to the periphery of both lungs. No focal ventilat ory defects are seen. The perfusion lung scan demonstrates a homogenous pattern of uptake in both lungs. No segmental or s ubsegmental defects are seen. CONCLUSION: Normal examination. Titus Dwyer MD on July 29, 2017 at 10:30 Board Certified Radiologist. This report was verified electronically.
[2017-07-29] MEDS ORDERED: HYDR-3576 PO (11:10)
--- NOTE | 2017-07-29 11:15 | PD ---
Physical Exam Date Seen by Provider: Jul 29, 2017 Time Seen by Provider: 07:00 Narrative The patient was signed out to me at change of shift by Dr. Calderon. We're awaiting a VQ scan. The patient with a history of Libertad's disease with resultant kidney injury, presents with left sided pleuritic chest wall pain. The patient had a recent aortic valve replacement. Concern was that he may have had a PE. Data Data Last Documented VS Vital Signs Date Time Temp Pulse Resp B/P (MAP) Pulse Ox O2 Delivery O2 Flow Rate FiO2 07/29/17 07:10 64 14 139/82 (101) 98 Room Air 07/29/17 03:17 98.8 Orders Orders Electrocardiogram (07/29/17 03:35) Complete Blood Count With Diff (07/29/17 03:35) Comprehensive Metabolic Panel (07/29/17 03:35) Lipase (07/29/17 03:35) Urinalysis - C+S If Indicated (07/29/17 03:35) Magnesium (Mg) (07/29/17 03:35) Iv Access Insert/Monitor (07/29/17 03:35) Ecg Monitoring (07/29/17 03:35) Oximetry (07/29/17 03:35) D-Dimer (07/29/17 04:48) Ventilation & Perfusion Scan (07/29/17 05:48) Chest, Single Ap (07/29/17 05:49) Labs Laboratory Tests Test 07/29/17 03:45 07/29/17 04:45 07/29/17 05:10 White Blood Count 5.3 TH/MM3 Red Blood Count 2.61 MIL/MM3 Hemoglobin 8.9 GM/DL Hematocrit 26.0 % Mean Corpuscular Volume 99.8 FL Mean Corpuscular Hemoglobin 34.1 PG Mean Corpuscular Hemoglobin Concent 34.2 % Red Cell Distribution Width 15.8 % Platelet Count 250 TH/MM3 Mean Platelet Volume 7.4 FL Neutrophils (%) (Auto) 76.9 % Lymphocytes (%) (Auto) 10.9 % Monocytes (%) (Auto) 7.1 % Eosinophils (%) (Auto) 4.5 % Basophils (%) (Auto) 0.6 % Neutrophils # (Auto) 4.1 TH/MM3 Lymphocytes # (Auto) 0.6 TH/MM3 Monocytes # (Auto) 0.4 TH/MM3 Eosinophils # (Auto) 0.2 TH/MM3 Basophils # (Auto) 0.0 TH/MM3 CBC Comment DIFF FINAL Differential Comment Blood Urea Nitrogen 33 MG/DL Creatinine 1.71 MG/DL Random Glucose 167 MG/DL Total Protein 7.2 GM/DL Albumin 3.1 GM/DL Calcium Level 9.1 MG/DL Magnesium Level 1.6 MG/DL Alkaline Phosphatase 90 U/L Aspartate Amino Transf (AST/SGOT) 18 U/L Alanine Aminotransferase (ALT/SGPT) 17 U/L Total Bilirubin 0.3 MG/DL Sodium Level 139 MEQ/L Potassium Level 4.3 MEQ/L Chloride Level 107 MEQ/L Carbon Dioxide Level 23.7 MEQ/L Anion Gap 8 MEQ/L Estimat Glomerular Filtration Rate 40 ML/MIN Lipase 292 U/L D-Dimer Quantitative (PE/DVT) 4.16 MG/L FEU Urine Color LIGHT-YELLOW Urine Turbidity CLEAR Urine pH 5.5 Urine Specific [place] 1.011 Urine Protein 100 mg/dL Urine Glucose (UA) NEG mg/dL Urine Ketones NEG mg/dL Urine Occult Blood NEG Urine Nitrite NEG Urine Bilirubin NEG Urine Urobilinogen LESS THAN 2.0 MG/DL Urine Leukocyte Esterase NEG Urine RBC 1 /hpf Urine WBC 1 /hpf Urine Bacteria RARE /hpf Urine Hyaline Casts 3 /lpf Urine Granular Casts 3 /lpf Microscopic Urinalysis Comment CULT NOT INDICATED MDM Medical Record Reviewed: Yes Supervised Visit with HOWIE: No Narrative Course 72-year-old male with a history of Libertad's disease, recent aortic valve replacement, presents today with complaints of pleuritic left sided chest wall pain. Patient gives history that he's had a recent URI. He states he had a lot of coughing. He states it started yesterday while he was watching football. The patient is not in any distress. His creatinine was 1.7 which is at his baseline. Therefore, a VQ scan was ordered to rule out pulmonary him was. VQ scan comes back with negative for acute process. I discussed this with the patient and his . They're very appreciative that it is not positive for a pulmonary embolism. The patient states the discomfort has improved tremendously since it started. Given his kidney disease, NSAIDs would not be indicated here. Also steroids would not be ideal as he's had problems with his blood sugar with previous steroid use. He'll be started on Lorcet, 5 mg every 6-8 hours as needed. If give him a total of 15 tablets. He also be given a refill of his pantoprazole. Follow up with his primary care physician, Dr. Virgie Dunaway. CC: Dr. Virgie Dunaway Diagnosis Primary Impression: Pleuritic chest pain Additional Impressions: History of aortic valve replacement history of Libertad's disease Additional Instruction: Follow up with her primary care physician. Moist heat every 6-8 hours as needed. Return if feeling worse. Med/Other Pt SpecificInfo: Prescription(s) given Scripts Hydrocodone-Acetaminophen (Lorcet) 5-325 mg Tab 1 TAB PO Q6H Y for PAIN, #15 TAB 0 Refills Prov: Dawit Loera MD 07/29/17 Pantoprazole (Pantoprazole) 20 Mg Tab 20 MG PO DAILY for Reflux, #30 TAB 0 Refills Prov: Dawit Loera MD 07/29/17 Disposition: 01 DISCHARGE HOME Condition: Stable Dawit Loera MD Jul 29, 2017 11:15
[2017-07-29 11:42] VITALS: BP 132/75; PULSE 63; RESP 14; O2SAT 98
--- NOTE | 2017-07-29 16:26 | EKG ---
Date Performed: 07/29/2017 Time Performed: 04:05:20 PTAGE: 72 years EKG: Sinus rhythm POSSIBLE RIGHT VENTRICULAR CONDUCTION DELAY LEFT VENTRICULAR HYPERTROPHY AND ST-T CHANGE ABNORMAL EC G Compared to PREVIOUS TRACING , criteria for left ventricular hypertrophy is now present. PREVIOUS TRA CIN04/29/2017 07.38.02 DOCTOR: Isauro Salazar Interpretating Date/Time 07/29/2017 16:25:57
== END 2017-07-29 11:58 | disposition home or self-care (01) ==
LOC: NEPE 03:16
DX: R07.81 Pleurodynia (principal); Z95.2 Presence of prosthetic heart valve; E11.9 Type 2 diabetes mellitus without complications; I10 Essential (primary) hypertension; Z79.899 Other long term (current) drug therapy; R94.31 Abnormal electrocardiogram [ECG] [EKG]
CPT/HCPCS: 71045; 78582; 80053; 81001; 83690; 83735; 85025; 85379; 93005; 99284; A9540; A9567

== ENCOUNTER 2017-12-06 13:07 | Emergency (ER) | payer MEDICARE, OTHER ==
[~2017-12-06] VITALS: Ht 175.3 cm; Wt 74.5 kg
[~2017-12-06 13:07] MED LIST changes: +ASPI-516 CHEW; -CHLO25TA2 PO; -FERR325C PO; +FERR325T18 PO; +HYDR-3576 PO; +ISOS10TA PO; -ISOS20TA PO; +PANT20TA2 PO
[2017-12-06 13:12] VITALS: BP 152/72; PULSE 72; RESP 18; TEMP 97.5; O2SAT 97
--- NOTE | 2017-12-06 13:37 | PD ---
HPI Chief Complaint: Pain: Acute or Chronic Time Seen by Provider: 13:25 Travel History International Travel<30 days: No Contact w/Intl Traveler<30days: No Traveled to known affect area: No History of Present Illness HPI 72-year-old male presents to the emergency department for evaluation of low back pain. Patient states his pain started 10 days ago, but became severe today. Patient denies any injury. He states he has had back pain in the past, but this is different and more severe. Patient states the pain is worse when he stands up. He states that occasionally the pain will radiate to his scrotum. Patient denies any history of kidney stones. No fevers or chills. No loss of bowel or bladder control. He denies any weakness or syncope. Patient reports history of chronic kidney disease. No urinary symptoms. Current pain is 9/10, aching, throbbing, occasionally sharp. No exacerbating factors. Moderate severity. PFSH Past Medical History Autoimmune Disease: Yes (SHELLIE'S DISEASE) Cardiovascular Problems: Yes Diabetes: Yes Patient Takes Glucophage: No Diminished Hearing: No Genitourinary: Yes (KIDNEY DISEASE) Hypertension: Yes Respiratory: Yes Tetanus Vaccination: Unknown Influenza Vaccination: Yes Past Surgical History Cardiac Surgery: Yes (OPEN HEART REPLACE AORTIC VALVE) Social History Alcohol Use: Yes (rare) Tobacco Use: No Substance Use: No Allergies-Medications (Allergen,Severity, Reaction): Coded Allergies: CHYNA Inhibitors (Verified Allergy, Unknown, 12/06/17) ARB-Angiotensin Receptor Antagonist (Verified Allergy, Unknown, 12/06/17) Reported Meds & Prescriptions Reported Meds & Active Scripts Active Reported Isosorbide Dinitrate 10 Mg Tab 10 Mg PO TID Ferrous Sulfate 325 Mg (65 Mg Iron) Tablet 325 Mg PO DAILY Aspirin 81 Mg Chew 162 Mg CHEW DAILY Multiple Vitamin 1 Tab 1 Tab PO DAILY Imuran (Azathioprine) 50 Mg Tab 125 Mg PO DAILY Hazardous agent: use appropriate precautions for handling and disposal. Januvia (Sitagliptin Phosphate) 50 Mg Tab 50 Mg PO DAILY Clonidine 168 HR Patch (Clonidine HCl) 0.3 Mg/24 Hr Patch 1 Patch T-DERMAL Q7D Atorvastatin (Atorvastatin Calcium) 10 Mg Tab 10 Mg PO HS Hydralazine HCl 25 Mg Tablet 25 Mg PO BID Review of Systems Except as stated in HPI: all other systems reviewed are Neg Physical Exam Narrative GENERAL: Well-nourished, well-developed male patient, ambulatory. Afebrile SKIN: Focused skin assessment warm/dry. HEAD: Normocephalic. Atraumatic EYES: No scleral icterus. No injection or drainage. NECK: Supple, trachea midline. No JVD or lymphadenopathy. CARDIOVASCULAR: Regular rate and rhythm without murmurs, gallops, or rubs. Bilateral pedal pulses are 2+. RESPIRATORY: Breath sounds equal bilaterally. No accessory muscle use. Lung sounds are clear to auscultation peer GASTROINTESTINAL: Abdomen soft, non-tender, nondistended. MUSCULOSKELETAL: No cyanosis, or edema. Bilateral upper and lower extremity strength 5/5. BACK: Nontender without obvious deformity. Left CVA tenderness. Patient has tenderness to palpation over left lumbar paraspinal musculature, minor tenderness over left lumbar spine. Data Data Last Documented VS Vital Signs Date Time Temp Pulse Resp B/P (MAP) Pulse Ox O2 Delivery O2 Flow Rate FiO2 12/06/17 13:12 97.5 72 18 152/72 (98) 97 Orders Orders Complete Blood Count With Diff (12/06/17 13:32) Comprehensive Metabolic Panel (12/06/17 13:32) Urinalysis - C+S If Indicated (12/06/17 13:32) Ct Abd/Pel W/O Iv Contrast (12/06/17 13:32) Iv Access Insert/Monitor (12/06/17 13:32) Acetamin-Hydrocod 325-5 Mg ([place] 5-325 (12/06/17 13:45) Sodium Chloride 0.9% Flush (Ns Flush) (12/06/17 13:45) Ct Lumb Spine W/O Contrast (12/06/17 ) Sodium Chlorid 0.9% 500 Ml Inj (Ns 500 M (12/06/17 15:00) Labs Laboratory Tests Test 12/06/17 13:50 12/06/17 14:15 Urine Collection Type CLEAN CATCH Urine Color YELLOW Urine Turbidity CLEAR Urine pH 5.5 Urine Specific [place] 1.020 Urine Protein 100 mg/dL Urine Glucose (UA) NEG mg/dL Urine Ketones NEG mg/dL Urine Occult Blood NEG Urine Nitrite NEG Urine Bilirubin NEG Urine Urobilinogen 0.2 MG/DL Urine Leukocyte Esterase NEG Urine RBC 0-3 /hpf Urine Squamous Epithelial Cells 0-5 /hpf Microscopic Urinalysis Comment CULT NOT INDICATED Urine Collection Time 13:50 White Blood Count 5.7 TH/MM3 Red Blood Count 3.05 MIL/MM3 Hemoglobin 10.6 GM/DL Hematocrit 31.5 % Mean Corpuscular Volume 103.4 FL Mean Corpuscular Hemoglobin 34.9 PG Mean Corpuscular Hemoglobin Concent 33.8 % Red Cell Distribution Width 14.9 % Platelet Count 189 TH/MM3 Mean Platelet Volume 7.1 FL Neutrophils (%) (Auto) 79.9 % Lymphocytes (%) (Auto) 10.3 % Monocytes (%) (Auto) 7.7 % Eosinophils (%) (Auto) 1.9 % Basophils (%) (Auto) 0.2 % Neutrophils # (Auto) 4.6 TH/MM3 Lymphocytes # (Auto) 0.6 TH/MM3 Monocytes # (Auto) 0.4 TH/MM3 Eosinophils # (Auto) 0.1 TH/MM3 Basophils # (Auto) 0.0 TH/MM3 CBC Comment DIFF FINAL Differential Comment Blood Urea Nitrogen 48 MG/DL Creatinine 2.70 MG/DL Random Glucose 151 MG/DL Total Protein 8.5 GM/DL Albumin 4.2 GM/DL Calcium Level 9.4 MG/DL Alkaline Phosphatase 65 U/L Aspartate Amino Transf (AST/SGOT) 26 U/L Alanine Aminotransferase (ALT/SGPT) 20 U/L Total Bilirubin 0.3 MG/DL Sodium Level 134 MEQ/L Potassium Level 4.6 MEQ/L Chloride Level 103 MEQ/L Carbon Dioxide Level 23.4 MEQ/L Anion Gap 8 MEQ/L Estimat Glomerular Filtration Rate 23 ML/MIN MDM Medical Decision Making Medical Screen Exam Complete: Yes Emergency Medical Condition: Yes Medical Record Reviewed: Yes Interpretation(s) Last Impressions Abdomen/Pelvis CT 12/06/17 1332 Signed Impressions: CONCLUSION: 1. No acute CT abnormality to explain patient's abdominal pain. Specifically, no radiopaque renal calculi or obstructive uropathy. 2. Numerous bilateral renal cysts including at least 2 hemorrhagic cysts. Mult iple cysts are indeterminant density and cannot be fully characterized. Renal m ass protocol MRI examination may be performed for further characterization on a n outpatient basis as clinically appropriate. 3. Colonic diverticulosis without evidence for diverticulitis. 4. Degenerative spondylosis of the lower lumbar spine most prominently at L5-S 1. Lumbar Spine CT 12/06/17 0000 Signed Impressions: CONCLUSION: Mild degenerative changes. No acute bony findings Differential Diagnosis Muscle strain versus muscle spasm versus herniated disc versus compression fracture versus nephrolithiasis versus UTI Narrative Course 72-year-old male presents to the emergency department for evaluation of left low back pain, worse when he gets up. He does state that occasionally will radiate to the scrotum. He states he has had it for 10 days, but is worse today. No traumatic injury. CBC, CMP, UA are ordered and pending. CT abdomen/ pelvis without contrast, CT of the lumbar spine without contrast ordered and pending. Patient is given [place] 5/325 mg PO for pain. CBC shows no acute abnormality. CMP shows hyponatremia 134, BUN 48, creatinine 2.7, hyperglycemia 151. UA is negative. CT abdomen/pelvis shows No acute CT abnormality to explain patient's abdominal pain. Specifically, no radiopaque renal calculi or obstructive uropathy; Numerous bilateral renal cysts including at least 2 hemorrhagic cysts. Multiple cysts are indeterminant density and cannot be fully characterized. Renal mass protocol MRI examination may be performed for further characterization on an outpatient basis as clinically appropriate; Colonic diverticulosis without evidence for diverticulitis; Degenerative spondylosis of the lower lumbar spine most prominently at L5-S1. CT of the lumbar spine shows mild degenerative changes. No acute bony findings. Patient states his normal creatinine is between 1.8 and 2.5. Patient is given normal saline 500 mL IV bolus. Upon reevaluation, patient states his pain is completely gone as long as he is lying still. The pain will exacerbate if he moves which is reassuring that this is a musculoskeletal issue. Patient will be discharged short-term prescription for [place] and Robaxin. He is encouraged to follow with his primary care physician and beef boner. I gave the patient a copy of his CT report and he is instructed to follow-up with his beef boner. He verbalizes agreement. Diagnosis Primary Impression: Acute low back pain Qualified Codes: M54.5 - Low back pain Referrals: [facility] Care Physician Patient Instructions: Acute Low Back Pain (ED), General Instructions, Narcotic given in the ED Additional Instructions: Take [place] as directed as needed for pain. Cautioned this can make you drowsy so do not drive after taking Take Robaxin as directed as needed Heating pad on low for 20 minutes 4-5 times daily Follow-up with your beef [facility]er for further evaluation of cyst on your kidneys. Follow-up with your primary care physician for evaluation of back pain. Return to the emergency department for any acute worsening of symptoms. Med/Other Pt SpecificInfo: Prescription(s) given Scripts Methocarbamol (Robaxin) 750 Mg Tab 750 MG PO TID Y for MUSCLE SPASM, #21 TAB 0 Refills Prov: Martha Narayanan 12/06/17 Hydrocodone-Acetaminophen ([place]) 5 Mg-325 Mg Tab 1 TAB PO Q6H Y for PAIN, #12 TAB 0 Refills Prov: Martha Narayanan 12/06/17 Disposition: 01 DISCHARGE HOME Condition: Stable Martha Narayanan December 06, 2017 13:37
[2017-12-06] MEDS ORDERED: ACETAMINOPHEN/HYDROcodone 325 MG/5 MG TAB PO ONE (13:45)
[2017-12-06] MEDS ORDERED: SODIUM CHLORIDE 0.9% FLUSH 10 ML FLUSH IVF PRN (13:45)
[2017-12-06 14:19] LABS: BILIRUBIN, URINE NEG (NEG); BLOOD, URINE NEG (NEG); GLUCOSE,URINE NEG (NEG); KETONE, URINE NEG (NEG); NITRITE,URINE NEG (NEG); PH, URINE 5.5 (5.0-8.5); URINE COLOR YELLOW (YELLW/STRAW); URINE LEUKOCYTE ESTERASE NEG (NEG)
[2017-12-06 14:26] LABS: AUTOMATED NEUTROPHIL # 4.6 TH/MM3 (1.8-7.7); BASOPHIL % 0.2 % (0.0-2.0); EOSINOPHIL # 0.1 TH/MM3 (0-0.4); EOSINOPHIL % 1.9 % (0.0-4.0); HEMATOCRIT 31.5 % (39.0-51.0); HEMOGLOBIN 10.6 GM/DL (13.0-17.0); LYMPH % 10.3 % (9.0-44.0); LYMPHOCYTE # 0.6 TH/MM3 (1.0-4.8); MEAN CELL VOLUME 103.4 FL (80.0-100.0); MEAN CORPUSCULAR HEMOGLOBIN 34.9 PG (27.0-34.0); MEAN CORPUSCULAR HGB CONC 33.8 % (32.0-36.0); MEAN PLATELET VOLUME 7.1 FL (7.0-11.0); MONO % 7.7 % (0.0-8.0); MONOCYTE # 0.4 TH/MM3 (0-0.9); NEUT % 79.9 % (16.0-70.0); PLATELET COUNT 189 TH/MM3 (150-450); RED BLOOD COUNT 3.05 MIL/MM3 (4.50-5.90); RED CELL DISTRIBUTION WIDTH 14.9 % (11.6-17.2); WHITE BLOOD COUNT 5.7 TH/MM3 (4.0-11.0)
[2017-12-06 14:28] LABS: RBC, URINE 0-3 /hpf (0-3); SQUAMOUS EPITHELIAL CELL URINE 0-5 /hpf (0-5)
[2017-12-06 14:33] LABS: CHLORIDE 103 MEQ/L (98-107); SODIUM (NA) 134 MEQ/L (136-145)
--- NOTE | 2017-12-06 14:35 | RADRPT ---
EXAM DATE: 12/06/2017 2:30 PM EDT AGE/SEX: 72 years / Male INDICATIONS: Left low back pain x 10 days, worse today. CLINICAL DATA: This is the patient's initial encounter. Patient reports that signs and symptoms have been present for 1 week and indicates a pain score of 9/10. MEDICAL/SURGICAL HISTORY: Hypertension. Diabetes. Renal disease. . Aortic valve replacement. RADIATION DOSE: . CTDI (mGy) ; Reconstructed from previous dataset, no dose COMPARISON: No prior [facility] exams available for comparison. TECHNIQUE: Contiguous axial images were acquired with a multirow detector CT scanner without contras t. Multiplanar reconstructions in the sagittal and coronal plane were also performed. Using automate d exposure control and adjustment of the mA and/or kV according to patient size, radiation dose was k ept as low as reasonably achievable to obtain optimal diagnostic quality images. FINDINGS: There is slight retrolisthesis of L5 relative to S1. The alignment is otherwise normal. There is disc space narrowing at L5-S1. Disc height is reasonably well preserved at other levels. Small primarily ventral endplate osteophytes are present most conspicuously at L3-4. There is no evidence of fracture or destructive change. No significant bony canal or foraminal compromise is identified. There is no evidence of paraspinal mass or hematoma. CONCLUSION: Mild degenerative changes. No acute bony findings Electronically signed by: Adis Chavira MD 12/06/2017 2:33 PM EDT
[2017-12-06 14:36] LABS: CALCIUM 9.4 MG/DL (8.5-10.1)
[2017-12-06 14:37] LABS: ALBUMIN 4.2 GM/DL (3.4-5.0); BICARBONATE 23.4 MEQ/L (21.0-32.0); BLOOD UREA NITROGEN 48 MG/DL (7-18); GLUCOSE,RANDOM 151 MG/DL (74-106)
[2017-12-06 14:40] LABS: ALT (GPT) 20 U/L (12-78); AST (GOT) 26 U/L (15-37); GLOMERULAR FILTRATION RATE 23 ML/MIN (>89)
[2017-12-06 14:41] LABS: TOTAL BILIRUBIN ADULT 0.3 MG/DL (0.2-1.0)
[2017-12-06 14:42] LABS: TOTAL PROTEIN 8.5 GM/DL (6.4-8.2)
[2017-12-06 14:43] LABS: ALKALINE PHOSPHATASE 65 U/L (45-117)
--- NOTE | 2017-12-06 14:44 | RADRPT ---
EXAM DATE: 12/06/2017 2:15 PM EDT AGE/SEX: 72 years / Male INDICATIONS: Left low back pain x 10 days, worse today. CLINICAL DATA: This is the patient's initial encounter. Patient reports that signs and symptoms have been present for 1 week and indicates a pain score of 9/10. MEDICAL/SURGICAL HISTORY: Cardiovascular disease. Diabetes. Renal disease. . Aortic valve rep lacement. RADIATION DOSE: 6.19 CTDI (mGy) COMPARISON: No prior [facility] exams available for comparison. TECHNIQUE: Multiple contiguous axial images were obtained through the abdomen. Images were obtained using multiple row detector helical technique. Using dose reduction techniques, radiation dose was ke pt as low as reasonably achievable to obtain optimal diagnostic quality images. FINDINGS: Lower Lungs: The visualized lower lungs are clear. Liver: Visualized portions of the liver are unremarkable without significant intrahepatic ductal dila tation of volume loss. No calcified gallstones. Spleen: Homogeneous density without enlargement. Pancreas: Unremarkable without mass or calcification. Kidneys: Multiple bilateral cystic renal lesions with a dominant cyst measuring 3 cm in the posterio r mid left kidney. There is a 1.5 cm right and 1.9 cm left sided hemorrhagic cysts. Numerous addition al indeterminate density cysts most of which are too small for further characterization. No radiopaqu e renal calculi. Adrenal Glands: Unremarkable. Aorta: The aorta and proximal iliac vessels are grossly unremarkable without aneurysmal dilation. Bowel/Mesentery: Mild sigmoid diverticulosis and scattered colonic diverticula throughout the colon. No significant inflammatory change to suggest diverticulitis. No dilated loops of bowel. No free flu id or drainable fluid collections. No free air. Abdominal Wall: Intact. Retroperitoneum: No evidence of adenopathy in the retrocrural, para-aortic, or deep pelvic regions. Bladder: Contours are smooth. Reproductive Organs: Nonspecific enlargement of the prostate gland. Inguinal: The inguinal region is unremarkable without evidence of adenopathy. Bony Structures: Mild multilevel degenerative spondylosis of the lumbar spine. CONCLUSION: 1. No acute CT abnormality to explain patient's abdominal pain. Specifically, no radiopaque renal ca lculi or obstructive uropathy. 2. Numerous bilateral renal cysts including at least 2 hemorrhagic cysts. Multiple cysts are indeter minant density and cannot be fully characterized. Renal mass protocol MRI examination may be performe d for further characterization on an outpatient basis as clinically appropriate. 3. Colonic diverticulosis without evidence for diverticulitis. 4. Degenerative spondylosis of the lower lumbar spine most prominently at L5-S1. Electronically signed by: Denver Cameron MD 12/06/2017 2:43 PM EDT
[2017-12-06] MEDS ORDERED: NORC5TAB PO (14:57)
[2017-12-06] MEDS ORDERED: ROBA750T PO (14:57)
[2017-12-06 14:59] VITALS: RESP 16
[2017-12-06] MEDS ORDERED: SODIUM CHLORID 0.9% 500 ML INJ 500 ML IV ONE (15:00)
== END 2017-12-06 15:29 | disposition home or self-care (01) ==
LOC: PHEFT 13:07
DX: M54.5 Low back pain (principal); I12.9 Hypertensive chronic kidney disease with stage 1 through stage 4 chronic kidney disease, or unspecified chronic kidney disease; E11.22 Type 2 diabetes mellitus with diabetic chronic kidney disease; N18.9 Chronic kidney disease, unspecified; M31.30 Wegener's granulomatosis without renal involvement; E11.65 Type 2 diabetes mellitus with hyperglycemia; E87.1 Hypo-osmolality and hyponatremia; N28.1 Cyst of kidney, acquired; K57.30 Diverticulosis of large intestine without perforation or abscess without bleeding
CPT/HCPCS: 72131; 74176; 80053; 81001; 85025; 96360; 99285; J7040